=== PATIENT | male | born 1950 | race Caucasian/White ===

== ENCOUNTER 2019-09-30 07:12 | Emergency (ER) | payer MEDICARE, OTHER, SELFPAY ==
[2019-09-30 07:13] VITALS: BP 164/80; PULSE 94; RESP 18; TEMP 36.8; O2SAT 98; BMI 45.1
--- NOTE | 2019-09-30 07:41 | ED.DCSUM_ITS ---
History of Present Illness Chief Complaint: Nausea/Vomiting/Diarrhea Informant: Patient, Significant Other Onset: Days - 4 Narrative: The patient states that on he and his woke with vomiting. The next day he developed diarrhea. She has subsequently recovered well he has not. He continues to have watery diarrhea as well as emesis. Last emesis was last night around 213 0 hours. Last diarrhea was this morning. He notes difficulty maintaining p.o. medications. He has been taking his insulin. No recent antibiotics. No history of C. difficile. Past Medical History - Allergies and Home Meds Allergies/Adverse Reactions: Allergies No Known Allergies Allergy (Verified 09/30/19 07:15) Primary Care Physician: [place] [Primary Care Provider] - As Needed Surgical History: herniorrhaphy Smoking Status: Never smoker Physical Exam Vital Signs/Narrative: Vital Signs Temp Pulse Resp BP Pulse Ox 09/30/19 07:13 98.2 F 94 18 164/80 H 98 Diagnostic/Tx/Re-eval - Medical Decision Making Labs showed chronic kidney disease creatinine 1.68. States that he does see a kidney specialist for diabetic nephropathy. Electrolytes are in check. White count is stable. He received a liter of IV fluids. Urinalysis is normal. No vomiting here in the department after Zofran. I will write for Zofran and encourage Imodium as needed. Will encourage oral hydration. Return if worsening or concerns After the patient was discharged several hours later his stool specimen returned positive for the norovirus. He will be updated. ED Disposition - Plan for ED Patient: Disposition: Home or Assisted Living Diagnosis: Gastroenteritis, Norovirus Instructions: GASTROENTERITIS, Viral (4y-Adult) Prescriptions: Ondansetron [Zofran Odt] 4 mg PO Q6H PRN PRN #20 tab PRN Reason: Nausea Prescription Printed Referrals: [place] [Primary Care Provider] - As Needed
[2019-09-30] MEDS: Ondansetron 4 MG/2 ML Vial IV (08:09)
[2019-09-30] MEDS: 0.9% Normal Saline 1,000 ML 1000 ML IV (08:09)
[2019-09-30 08:17] LABS: Absolute Lymphocyte Count 1.41 X10^3/uL (0.83-4.51); Basophil# 0.03 X10^3/uL; Basophil% 0.3 % (0-1); Eosinophil# 0.05 X10^3/uL; Eosinophils% 0.5 % (0-5); Hematocrit 39.6 % (40-54); Hemoglobin 12.5 g/dL (13.0-16.5); Lymphocyte # 1.41 X10^3/ul (4.0); Lymphocyte % 13.4 % (19-41); Mean Corp Hgb Conc 31.6 g/dL (32-36); Mean Corpuscular Hgb 25.2 pg (27.0-32.0); Mean Corpuscular Volume 79.8 fL (80-94); Mean Platelet Vol. 8.4 fl (6.2-12.0); Monocyte# 1.03 X10^3/uL; Monocyte% 9.8 % (0-10); NRBC Flagged by Analyzer 0 % (0-5); Neutrophil % 75.7 % (47-70); Platelet Count 331 K/mm3 (150-450); RBC Distribution Width CV 14.7 % (11.6-14.6); RBC Distribution Width SD 42.7 fl (35.1-43.9); Red Blood Count 4.96 M/mm3 (4.6-6.2); White Blood Count 10.6 K/mm3 (4.4-11.0)
[2019-09-30 08:32] LABS: AST(SGOT) 18 U/L (15-37); Alanine Aminotransfer ALT/SGPT 31 U/L (16-61); Albumin, Serum 3.4 g/dL (3.2-5.0); Alkaline Phosphatase 78 U/L (45-117); Anion Gap 9 (5-15); BUN 38 mg/dL (7-18); BUN/Creat Ratio 22.6 RATIO (10-20); Bilirubin, Direct 0.33 mg/dL (0.00-0.30); Calcium,Total 9.1 mg/dL (8.5-10.1); Chloride 99 mmol/L (98-107); Creatinine, Serum 1.68 mg/dL (0.70-1.30); EST Glomerular Filtration Rate 43 mL/min (>60); Est Glom Filt Rate - Afr Amer 52 mL/min (>60); Estimated Creatinine Clearance 36.39 ml/min; Globulin 4.6 g/dL (2.2-4.2); Glucose 205 mg/dL (74-106); Lipase 118 U/L (73-393); Potassium 3.5 mmol/L (3.5-5.1); Sodium Level 134 mmol/L (136-145)
[2019-09-30 09:42] LABS: Mucous, Urine 0 SEEN /hpf (<or=2+); Red Blood Cells-Urine 0 SEEN /hpf (0-5); White Blood Cells 0 SEEN /hpf (0-5)
[2019-09-30 09:45] LABS: Color, Urine Yellow (Yellow); Glucose, Dipstick Normal (Normal); Ketone-Dipstick Negative (Negative); Leukocyte Esterase-Dipstick Negative /ul (Negative); Nitrite-Dipstick Negative (Negative); Occult Blood-Urine Negative /ul (Negative); Protein-Dipstick 15 mg/dl (Negative); Specific Gravity, Urine 1.015 (1.002-1.030); Urine Bilirubin Dipstick Negative (Negative); Urine Clarity Sl. Cloudy (Clear); Urine Urobilinogen Normal (Normal)
[2019-09-30 09:51] LABS: Bacteria RARE /hpf (None Seen); Hyaline Cast 0-5 SEEN /lpf (0-5); Squamous Epithelial Cells - UA 0-5 SEEN /hpf (0-5)
[2019-09-30 10:24] VITALS: BP 148/74; PULSE 87; RESP 18; O2SAT 99
--- NOTE | 2019-09-30 16:28 | ED.RN ---
Called pt and informed of norovirus and that it may last severqal days per dr Tillman. Pt is aware and has been pushing fluids. He verbalized need to return if he is unable to maintain fluids.
== END 2019-09-30 10:27 | disposition home or self-care (01) ==
PROVIDERS: Emergency Provider Emergency Medicine
DX: A08.11 Acute gastroenteropathy due to Norwalk agent (principal); E11.22 Type 2 diabetes mellitus with diabetic chronic kidney disease; N18.9 Chronic kidney disease, unspecified; E11.21 Type 2 diabetes mellitus with diabetic nephropathy; Z79.4 Long term (current) use of insulin; Z79.84 Long term (current) use of oral hypoglycemic drugs; Z79.899 Other long term (current) drug therapy; R19.7 Diarrhea, unspecified
CPT/HCPCS: 80048; 80076; 81001; 83690; 85025; 87506; 96361; 96374; 99283; J7030; J2405

== ENCOUNTER 2020-04-06 08:12 | Emergency (ER) | payer MEDICARE, OTHER, SELFPAY ==
[2020-04-06 08:13] VITALS: BP 175/107; PULSE 90; RESP 18; TEMP 36.6; O2SAT 98; BMI 45.6
--- NOTE | 2020-04-06 08:44 | ED.VISSUMM ---
- ER Visit Summary Date of Service: 04/06/20 Chief Complaint: Scrotal swelling, abdominal pain, and elevated blood sugar History of Present Illness: The patient is a 69 M who presents with scrotal swelling and lower abdominal pain that has been getting worse over the past couple days. Patient describes the pain as a pressure. Patient states it is over his scrotum and testicles. Patient states he has some pain into his lower abdomen. Patient states nothing makes it better or worse. Patient states his blood sugars have been increasing. Patient states he was started on Jardiance in November for his diabetes. Patient denies any fevers or chills. Patient denies any nausea or vomiting. Patient denies any dysuria or hematuria. Physical Examination: Vital signs are stable except for slightly elevated blood pressure of 175/107. Patient is afebrile. Patient is in no acute distress. Oral mucosa is pink and moist. Neck is supple. Trachea is midline. There is no JVD. Heart was regular rate and rhythm. Lungs are clear and equal bilaterally. Abdomen is soft. Bowel sounds are normal. There is some mild lower abdominal tenderness. There is no rebound or guarding noted. exam showed some mild tenderness over the posterior aspect of the left testicle, over the epididymis. There is no tenderness of the right testicle. The scrotum was nontender. There may be some mild edema of the scrotum. There are no abscesses or pustules noted. Examination of the penis was normal. Extremities are intact. There is no calf tenderness or edema. Cranial nerves II through XII are intact. There are no focal motor or sensory deficits. Test Results: CBC and comprehensive metabolic profile were obtained. BUN was slightly elevated at 21 and creatinine was 1.44. This was consistent with prior results. Glucose was slightly elevated at 230. Urinalysis does not show any evidence of urinary tract infection. CT scan of the abdomen and pelvis was obtained. There is a right renal cyst. There is constipation noted. There is a right adrenal mass suggestive of adenoma or myolipoma. This was interpreted by the radiologist and reviewed by myself. Emergency Department Course and Treatment: Patient was feeling better on reevaluation. Since the patient has tenderness over the epididymis of his left testicle, we will treat him for epididymitis. Patient was instructed to follow-up with his primary care physician in 3 to 5 days for further evaluation. Patient and family understood and were agreeable with the plan. All questions were answered. Disposition: Discharge home Impression: Left epididymitis This note was generated with [employer] dictation software. It may contain incorrect words, spelling, and punctuation that were not noted in review of the chart prior to signing ED Disposition - Plan for ED Patient: Disposition: Home or Assisted Living Diagnosis: Left epididymitis Instructions: ED Epididymitis Prescriptions: Ciprofloxacin [Cipro] 500 mg PO BID #14 tab Prescription Printed [facility]errals[facility] [[facility] Provider] - 3-5 Days
[2020-04-06 08:58] LABS: Mucous, Urine 0 SEEN /hpf (<or=2+); Red Blood Cells-Urine 0 SEEN /hpf (0-5); White Blood Cells 0 SEEN /hpf (0-5)
[2020-04-06 09:02] LABS: Absolute Neutrophil Count 6.5 X10^3/uL (2.0-7.7); Basophil# 0.07 X10^3/uL; Basophil% 0.7 % (0-1); Eosinophil# 0.14 X10^3/uL; Eosinophils% 1.4 % (0-5); Hematocrit 42.2 % (40-54); Hemoglobin 13.1 g/dL (13.0-16.5); Lymphocyte % 26.8 % (19-41); Mean Corpuscular Hgb 25.2 pg (27.0-32.0); Mean Corpuscular Volume 81.3 fL (80-94); Mean Platelet Vol. 8.1 fl (6.2-12.0); Monocyte% 5.9 % (0-10); NRBC Flagged by Analyzer 0 % (0-5); Neutrophil # 6.47 X10^3/uL (2.7-7.7); Neutrophil % 64.1 % (47-70); Platelet Count 344 K/mm3 (150-450); RBC Distribution Width CV 14.9 % (11.6-14.6); RBC Distribution Width SD 43.5 fl (35.1-43.9); Red Blood Count 5.19 M/mm3 (4.6-6.2); White Blood Count 10.1 K/mm3 (4.4-11.0)
[2020-04-06 09:03] LABS: Color, Urine Yellow (Yellow); Glucose, Dipstick 1000 mg/dl (Normal); Ketone-Dipstick Negative (Negative); Leukocyte Esterase-Dipstick Negative /ul (Negative); Nitrite-Dipstick Negative (Negative); Occult Blood-Urine Negative /ul (Negative); Protein-Dipstick Negative (Negative); Urine Bilirubin Dipstick Negative (Negative); Urine Clarity Clear (Clear); Urine Urobilinogen Normal (Normal); Urine pH 6.5 (5.0 - 8.0)
[2020-04-06 09:10] LABS: Bacteria 0 SEEN /hpf (None Seen); Squamous Epithelial Cells - UA 0-5 SEEN /hpf (0-5)
[2020-04-06 09:17] LABS: ALB/GLOB Ratio 0.7 RATIO (0.9-2.4); AST(SGOT) 14 U/L (15-37); Alanine Aminotransfer ALT/SGPT 26 U/L (16-61); Albumin, Serum 3.4 g/dL (3.2-5.0); Alkaline Phosphatase 82 U/L (45-117); Anion Gap 4 (5-15); BUN 21 mg/dL (7-18); BUN/Creat Ratio 14.6 RATIO (10-20); Calcium,Total 8.8 mg/dL (8.5-10.1); Chloride 104 mmol/L (98-107); Creatinine, Serum 1.44 mg/dL (0.70-1.30); EST Glomerular Filtration Rate 51 mL/min (>60); Est Glom Filt Rate - Afr Amer 62 mL/min (>60); Estimated Creatinine Clearance 42.46 ml/min; Globulin 4.6 g/dL (2.2-4.2); Glucose 230 mg/dL (74-106); Potassium 4.3 mmol/L (3.5-5.1); Sodium Level 136 mmol/L (136-145)
--- NOTE | 2020-04-06 09:45 | CT_ITS ---
STUDY: CT ABDOMEN AND PELVIS WITHOUT CONTRAST REASON FOR EXAM: Male, 69 years old. LOWER ABD PAIN, HERNIA REPAIR 20 + YRS AGO RADIATION DOSAGE (If Supplied By Facility): CTDIvol = ( 21.76 ) mGy, DLP = ( 1239.36 ) mGycm TECHNIQUE: Transaxial images were obtained from the dome of the diaphragm to the symphysis pubis without oral contrast, and without intravenous contrast. Sagittal and coronal images were reconstructed. Individualized dose optimization techniques were used for this CT. COMPARISON: None. FINDINGS: The visualized lung bases are unremarkable. The visualized portions of the heart are within normal limits. Normal liver. There are multiple small gallstones. Normal spleen. Normal pancreas. There is a well-circumscribed right adrenal mass measuring 2.7 x 3.4 cm with Hounsfield units in the range of fat or fluid. There is an exophytic cyst right kidney measuring 1.2 cm with benign features. There is an exophytic cyst measuring 2.9 cm right kidney with benign features. Normal left kidney. Normal visualized stomach. Normal small intestine. There is mild to moderate stool within a tortuous colon. There is minimal diverticulosis without diverticulitis. There is non-visualization of the appendix. Aorta is partially calcified. Normal inferior vena cava. Normal retroperitoneum. Normal urinary bladder. Normal visualized prostate gland. There is a ventral hernia mesh. There is a visualized reparative tearing umbilical hernia. There is an exaggerated physiologic lordosis. There is multilevel neural foraminal narrowing and moderate central stenosis. Cholelithiasis. This postoperative change in the lower right rectus muscle. CT/Abdomen/Pelvis without Cont IMPRESSION: Mild to moderate constipation. Status post ventral hernia repair. The appendix is not seen with certainty. No evidence of inflammation in the right lower quadrant Low attenuating well circumscribed 3.7 x 3.4 cm right adrenal mass with low Hounsfield units most suggestive of a adenoma or myolipoma. Benign-appearing right renal cyst. No evidence of hydronephrosis. Electronically Signed: Lindsey David MD at 11:00 EDT Tel , Service support ,
[2020-04-06 12:39] VITALS: BP 141/37; PULSE 87; RESP 18; O2SAT 96
== END 2020-04-06 12:40 | disposition home or self-care (01) ==
PROVIDERS: Emergency Provider Emergency Medicine
DX: N45.1 Epididymitis (principal); N28.1 Cyst of kidney, acquired; K59.00 Constipation, unspecified; E27.9 Disorder of adrenal gland, unspecified; E66.9 Obesity, unspecified; I10 Essential (primary) hypertension; K21.9 Gastro-esophageal reflux disease without esophagitis; E11.9 Type 2 diabetes mellitus without complications; Z79.4 Long term (current) use of insulin; Z79.84 Long term (current) use of oral hypoglycemic drugs; Z79.899 Other long term (current) drug therapy
CPT/HCPCS: 74176; 80053; 81001; 85025; 99283; A4216

== ENCOUNTER 2020-10-08 04:33 | Emergency (ER) | payer OTHER, MEDICARE, SELFPAY ==
[2020-10-08 04:34] VITALS: BP 186/84; PULSE 104; RESP 16; TEMP 36.9; O2SAT 98; BMI 48.9
--- NOTE | 2020-10-08 04:47 | ED.DCSUM_ITS ---
History of Present Illness Chief Complaint: Hypertension Informant: Patient Onset: Yesterday Context: Sudden Onset Timing: Continuous Quality: Elevated blood pressure readings Location: Home Current Severity: Moderate Maximum Severity: Moderate Worsened by: Nothing Relieved by: Nothing Associated Symptoms: Tremors Narrative: Patient elderly male with history of hypertension for many years who states he is compliant with his medication. He was noncompliant with diet over the holiday season. He also has history of type 2 diabetes requiring insulin, hypercholesterolemia, pernicious anemia, iron deficiency anemia. He denies headache. He denies double vision, blurred vision loss of vision. He states he has problems with hearing. The difficulty hearing is chronic. He denies ringing in his ears. He denies rhinorrhea, congestion or postnasal drainage. Denies sore throat. Denies dysphonia or dysphagia. He denies chest pain, dyspnea, dyspnea exertion, orthopnea or PND. He denies nausea or vomiting. He denies black or maroon stool. He denies urinary symptoms. He denies paresthesia, anesthesia motors upper or lower extremity. He denies problems with balance. Prior similar symptoms: Yes Recent Illness/Hospitalization: No - Past Medical History (1) History of hypercholesterolemia Status: Acute (2) History of pernicious anemia Status: Acute (3) History of iron deficiency anemia Status: Acute (4) Benign hypertension Status: Chronic (5) GERD (gastroesophageal reflux disease) Status: Chronic (6) Joint pain of leg Status: Chronic (7) Obesity Status: Chronic (8) Type II diabetes mellitus, uncontrolled Status: Chronic Past Medical History - Allergies and Home Meds Allergies/Adverse Reactions: Allergies No Known Allergies Allergy (Verified 10/08/20 04:43) Primary Care Physician: [place] [Primary Care Provider] - Surgical History: herniorrhaphy Lives: Spouse/ Significant Other Smoking Status: Never smoker Alcohol: None Drugs: None Review of Systems General: Denies: Chills, Fever, Malaise, Subjective, Weight loss Eyes: Denies: Visual changes - bilaterally, Blurred Vision - bilaterally, Diplopia ENT: Denies: Bilateral ear pain, Rhinorrhea, Sore throat Cardiovascular: Denies: Chest pain, Palpitations Respiratory: Denies: Dyspnea, Cough, Dyspnea on exertion, Orthopnea, Paroxysmal nocturnal dyspnea Gastrointestinal: Denies: Abdominal pain, Nausea, Vomiting, Diarrhea, Melena, Hematochezia Genitourinary: Denies: Dysuria, Hematuria, Frequency Musculoskeletal: Reports: Swelling - Swelling is not noted in the morning upon awakening.. Denies: Myalgias, Arthralgias, Neck pain, Back pain, Extremity Pain Skin: Denies: Rash, Wounds Neurological: Denies: Headache, Weakness Endocrine: Denies: Polyuria, Polydipsia Hematologic: Denies: Easy bruising, Easy bleeding Physical Exam Vital Signs/Narrative: Vital Signs Temp Pulse Resp BP Pulse Ox 10/08/20 04:34 98.4 F 104 H 16 186/84 H 98 Inital Vital Signs reviewed: Yes General: Well nourished, Well developed, Obese, No Acute Distress Head: Normocephalic, Atraumatic Eyes: Perrl, EOMI. Negative for: Pale conjunctiva, Scleral icterus ENT: Moist mucous membranes, No rhinorrhea Neck: Nontender Cardiovascular: Regular rhythm, No murmurs, Normal S1, Normal S2, Tachycardia Respiratory: No distress, CTA bilaterally, Chest nontender Abdomen: Soft, Nondistended, Normal bowel sounds, No masses. Negative for: Hepatomegaly, Splenomegaly, Mass, Pulsatile mass Rectal: Deferred Back: Nontender, Normal Inspection Extremities: Edema - 4 mm pitting edema. Negative for: Nontender Skin: Normal color, No rash, No Trauma. Negative for: Cyanosis, Diaphoresis, Jaundice Neurological: Alert, Oriented x3, Cranial nerves II-XII grossly intact, Normal Strength, Normal Sensation, Normal DTR - No clonus or Babinski sign., Normal Gait Psychological: Normal affect, Normal Mood Diagnostic/Tx/Re-eval Laboratory Results 10/08/20 10/08/20 04:47 05:35 Sodium 137 Potassium 4.0 Chloride 101 Carbon Dioxide 28.0 Anion Gap 8 BUN 24 H Creatinine 1.59 H Estim Creat Clear Calc 37.90 Est GFR (MDRD) Af Amer 55 L Est GFR (MDRD) Non-Af 46 L BUN/Creatinine Ratio 15.1 Glucose 163 H Calcium 9.2 Urine Color Yellow Urine Clarity Clear Urine pH 7.0 Ur Specific [place] 1.005 Urine Protein Negative Urine Glucose (UA) Normal Urine Ketones Negative Urine Occult Blood Negative Urine Nitrite Negative Urine Bilirubin Negative Urine Urobilinogen Normal Ur Leukocyte Esterase Negative With no proteinuria or hematuria and no significant rise in creatinine from prior and improving blood pressure without treatment will discharge to home to follow-up with physician at [facility]. Patient systolic normally is 1 30-1 40. - Medical Decision Making Patient with asymptomatic hypertension. In light of his age both medical problems will obtain basic metabolic panel and urinalysis. Will have nurse check blood pressure every 15 to 30 minutes. If there is evidence of endorgan injury will treat acutely otherwise will have him follow-up with his primary care physician. Patient creatinine elevated. Creatinine is unchanged from prior results. Blood pressure has diminished without treatment. Most recent blood pressure is 156/69. ED Disposition - Plan for ED Patient: Disposition: Home or Assisted Living Diagnosis: Accelerated essential hypertension, Chronic renal insufficiency, stage II (mild) Instructions: ED Hypertension, Established, ED Chronic Kidney Disease (CKD), ED Diet for Chronic Kidney Disease Referrals: [facility] [Primary Care Provider] - 1 Week
[2020-10-08 05:15] LABS: Anion Gap 8 (5-15); BUN 24 mg/dL (7-18); BUN/Creat Ratio 15.1 RATIO (10-20); Calcium,Total 9.2 mg/dL (8.5-10.1); Chloride 101 mmol/L (98-107); Creatinine, Serum 1.59 mg/dL (0.70-1.30); EST Glomerular Filtration Rate 46 mL/min (>60); Est Glom Filt Rate - Afr Amer 55 mL/min (>60); Glucose 163 mg/dL (74-106); Sodium Level 137 mmol/L (136-145)
[2020-10-08 05:16] VITALS: BP 156/69; PULSE 94
[2020-10-08 05:44] LABS: Bacteria 0 SEEN /hpf (None Seen); Color, Urine Yellow (Yellow); Glucose, Dipstick Normal (Normal); Ketone-Dipstick Negative (Negative); Leukocyte Esterase-Dipstick Negative /ul (Negative); Mucous, Urine 0 SEEN /hpf (<or=2+); Nitrite-Dipstick Negative (Negative); Occult Blood-Urine Negative /ul (Negative); Protein-Dipstick Negative (Negative); Red Blood Cells-Urine 0 SEEN /hpf (0-5); Specific Gravity, Urine 1.005 (1.002-1.030); Squamous Epithelial Cells - UA 0 SEEN /hpf (0-5); Urine Bilirubin Dipstick Negative (Negative); Urine Clarity Clear (Clear); Urine Urobilinogen Normal (Normal); White Blood Cells 0 SEEN /hpf (0-5)
[2020-10-08 06:06] VITALS: BP 148/51; PULSE 79; RESP 16; O2SAT 96
== END 2020-10-08 06:11 | disposition home or self-care (01) ==
PROVIDERS: Emergency Provider Emergency Medicine
DX: I12.9 Hypertensive chronic kidney disease with stage 1 through stage 4 chronic kidney disease, or unspecified chronic kidney disease (principal); E11.22 Type 2 diabetes mellitus with diabetic chronic kidney disease; N18.2 Chronic kidney disease, stage 2 (mild); E66.9 Obesity, unspecified; E78.00 Pure hypercholesterolemia, unspecified; D50.9 Iron deficiency anemia, unspecified; K21.9 Gastro-esophageal reflux disease without esophagitis; Z79.4 Long term (current) use of insulin; Z79.899 Other long term (current) drug therapy
CPT/HCPCS: 80048; 81001; 99284; A4216

== ENCOUNTER 2021-04-14 05:56 | Emergency (ER) | payer OTHER, MEDICARE, SELFPAY ==
[2021-04-14 05:57] VITALS: BP 158/110; PULSE 82; RESP 16; TEMP 36.2; O2SAT 93; BMI 46.7
[2021-04-14 06:09] VITALS: BP 141/52
--- NOTE | 2021-04-14 06:34 | EDS_ITS ---
HPI History of Present Illness Chief Complaint: Hypertension Informant: patient Narrative Narrative: 70-year-old male presents to the emergency room with hypertension. Patient currently takes atenolol as well as losartan-HCTZ for blood pressure management. He tells me that he got up around 0300 this morning and felt off. He felt a little shaky so he took his blood pressure and it showed systolics of around 170-180. Patient states that he has been under some stress lately with his [id number] in the hospital and terminally ill [id number]. He denies any change in diet. He denies any headache chest pain shortness of breath. He denies any new vision changes this morning. He does note that his hands felt tingly. He has been experiencing some resting tremor and notes the Parkinson's runs in his family. [facility] Medical History Diabetes Hypertension Hyperthyroidism Home Medications cholecalciferol (vitamin D3) [Vitamin D] 500 unit PO DAILY 11/06/16 [History Last Taken Unknown] insulin aspart U-100 [Novolog Flexpen (BKC)] 15 units SUBCUT BREAKFAST 11/06/16 [History Last Taken Unknown] insulin aspart U-100 [Novolog Flexpen U-100 Insulin] 16 units SUBCUT LUNCH 11/06/16 [History Last Taken Unknown] insulin glargine [Lantus] 80 unit SUBCUT QHS 11/06/16 [History Last Taken Unknown] metformin 500 mg PO BIDCM 11/06/16 [History Last Taken Unknown] omega-3 fatty acids-fish oil [Fish Oil 1,000 mg Capsule] 1 ea PO BID 11/06/16 [History Last Taken Unknown] Finasteride 5 mg PO DAILY 09/30/19 [History Last Taken Unknown] atorvastatin 80 mg PO QHS 09/30/19 [History Last Taken Unknown] cyanocobalamin (vitamin B-12) 500 mcg PO DAILY 09/30/19 [History Last Taken Unknown] ferrous sulfate 325 mg PO BIDCM 09/30/19 [History Last Taken Unknown] insulin aspart U-100 24 units SUBCUT DINNER 09/30/19 [History Last Taken Unknown] levothyroxine 25 mcg PO DAILY 09/30/19 [History Last Taken Unknown] losartan-hydrochlorothiazide 1 ea PO DAILY 09/30/19 [History Last Taken Unknown] magnesium oxide 420 mg PO DAILY 09/30/19 [History Last Taken Unknown] ascorbic acid (vitamin C) 250 mg PO BID 10/08/20 [History Last Taken Unknown] atenolol 25 mg PO DAILY 04/14/21 [History Last Taken Unknown] Allergy/AdvReac Type Severity Reaction Status Date / Time No Known Allergies Allergy Verified 04/14/21 06:01 Social History (Updated 04/14/21 @ 06:[address] King Tillman, DO) Smoking Status: Never smoker substance use type: does not use ROS ROS ED Constitutional Constitutional ED: Denies chills or weight loss Eyes Eyes: Denies change in vision or diplopia ENT ENT ED: Denies ear pain, rhinorrhea or sore throat Cardiovascular Cardiovascular: Denies chest pain, orthopnea, palpitations or racing heartbeat Respiratory/Chest Respiratory/Chest: Denies cough, dyspnea or orthopnea Gastrointestinal Gastrointestinal: Denies abdominal pain, diarrhea, nausea or vomiting Genitourinary Genitourinary ED: Denies dysuria, hematuria or urinary frequency Musculoskeletal Musculoskeletal: Denies arthralgias or myalgias Integumentary Denies abscess or rash Neurologic Neurologic: Reports tingling and tremor(s); Denies headache(s) or weakness Psychiatric Psychiatric: Denies anxiety, depression, suicidal ideation or suicidal thoughts Endocrine Endocrinology: Denies polydipsia, polyphagia or polyuria Allergic/Immunologic Allergic/Immunologic ED: Denies mouth swelling, tongue swelling or urticaria EXAM Physical Exam Const Vital Signs: 04/14/21 05:57 04/14/21 06:09 04/14/21 06:38 Temperature 97.2 F L Temperature Source Temporal Pulse Rate 82 Respiratory Rate 16 Blood Pressure 158/110 H 141/52 H 128/44 H Blood Pressure Mean 126 81 72 Pulse Ox 93 Oxygen Delivery Method Room Air Positive well nourished, well developed and obese General Appearance ED: well developed Nutritional Appearance: obese HEENT Reports normocephalic, head/scalp atraumatic and moist mucous membranes Eyes PERRL and EOMs intact bilaterally Neck no lymphadenopathy, supple and no JVD Resp normal respiratory effort and clear to auscultation bilaterally Cardio regular rate, regular rhythm and no murmurs GI normal to inspection, nondistended, normoactive bowel sounds and non-tender Palpation: soft Back/Spine no CVA tenderness and normal ROM Extremity normal to inspection General Extremety ED: Negative for edema General Extremity: Negative for edema Neuro oriented x3 and CN's II-XII intact bilaterally Sensorium / Orientation: alert Motor Exam: strength 5/5 throughout Psych mental status grossly normal Mood & Affect: Negative for depressed or tearful Skin no rashes or lesions noted and no wounds MDM MDM MDM Narrative Medical decision making narrative: Initial blood pressure in the ED 158/110. Few minutes later 141/52 and after my interview he was down to 138/56. Then 128/44. We will watch him for a couple more readings and if he stays down we will discharge him home. Patient is comfortable with this plan. Discharge Plan Triage Chief Complaint: Hypertension ED Provider: King Tillman Dx/Rx/DC Orders Clinical Impression: Accelerated essential hypertension Instructions: ED High Blood Pressure Hypertension Prescriptions: No Action Lantus U-100 Insulin 100 UNIT/ML solution 80 unit subcut QHS RF: 0 metformin 1,000 MG tablet 500 mg PO BIDCM RF: 0 insulin aspart U-100 [Novolog Flexpen U-100 Insulin] 100 UNITS/ML insulin pen 15 units subcut BREAKFAST RF: 0 insulin aspart U-100 [Novolog Flexpen U-100 Insulin] 100 UNITS/ML insulin pen 16 units subcut LUNCH RF: 0 cholecalciferol (vitamin D3) [Vitamin D3] 1,000 UNIT tablet 500 unit PO DAILY RF: 0 Fish Oil 1 EACH capsule 1 ea PO BID RF: 0 atorvastatin 40 MG tablet 80 mg PO QHS RF: 0 magnesium oxide 420 MG tablet 420 mg PO DAILY RF: 0 levothyroxine 25 MCG tablet 25 mcg PO DAILY RF: 0 cyanocobalamin (vitamin B-12) 500 MCG tablet 500 mcg PO DAILY RF: 0 ferrous sulfate 325 MG tablet 325 mg PO BIDCM RF: 0 insulin aspart U-100 100 UNITS/ML insulin pen 24 units subcut DINNER RF: 0 losartan-hydrochlorothiazide 1 EACH tablet 1 ea PO DAILY RF: 0 Finasteride 5 MG tablet 5 mg PO DAILY RF: 0 ascorbic acid (vitamin C) 250 MG tablet,chewable 250 mg PO BID RF: 0 atenolol 25 mg Tablet 25 mg PO DAILY RF: 0 [facility] [Primary [facility] Provider] - As Needed Disposition Disposition: Home, Self Care
[2021-04-14 06:38] VITALS: BP 128/44
== END 2021-04-14 07:10 | disposition home or self-care (01) ==
PROVIDERS: Emergency Provider Emergency Medicine
DX: I10 Essential (primary) hypertension (principal); E11.9 Type 2 diabetes mellitus without complications; E05.90 Thyrotoxicosis, unspecified without thyrotoxic crisis or storm; E66.9 Obesity, unspecified; Z68.42 Body mass index [BMI] 45.0-49.9, adult; Z79.4 Long term (current) use of insulin; Z79.899 Other long term (current) drug therapy
CPT/HCPCS: 99282; A4216

== ENCOUNTER 2021-07-20 04:29 | Emergency (ER) | payer OTHER, MEDICARE, SELFPAY ==
[2021-07-20 04:30] VITALS: BP 159/73; PULSE 81; RESP 16; TEMP 36; O2SAT 99; BMI 49.1
--- NOTE | 2021-07-20 04:43 | EDS_ITS ---
HPI History of Present Illness Chief Complaint: Wound Narrative Narrative: Patient states that he has a small wound on the left posterior arm from his freestyle balbina. It is currently out. Patient did not notice it was there until it drained. He states it was like a bubble and then popped. It is not draining anymore. He does not have any fever or chills. He has no systemic signs or symptoms. He feels otherwise well. [facility] Medical History Diabetes Hypertension Hyperthyroidism Home Medications cholecalciferol (vitamin D3) [Vitamin D] 500 unit PO DAILY 11/06/16 [History Last Taken Unknown] insulin aspart U-100 [Novolog Flexpen (BKC)] 15 units SUBCUT BREAKFAST 11/06/16 [History Last Taken Unknown] insulin aspart U-100 [Novolog Flexpen U-100 Insulin] 16 units SUBCUT LUNCH 11/06/16 [History Last Taken Unknown] insulin glargine [Lantus] 80 unit SUBCUT QHS 11/06/16 [History Last Taken Unk nown] metformin 500 mg PO BIDCM 11/06/16 [History Last Taken Unknown] omega-3 fatty acids-fish oil [Fish Oil 1,000 mg Capsule] 1 ea PO BID 11/06/16 [History Last Taken Unknown] Finasteride 5 mg PO DAILY 09/30/19 [History Last Taken Unknown] atorvastatin 80 mg PO QHS 09/30/19 [History Last Taken Unknown] cyanocobalamin (vitamin B-12) 500 mcg PO DAILY 09/30/19 [History Last Taken Unknown] ferrous sulfate 325 mg PO BIDCM 09/30/19 [History Last Taken Unknown] insulin aspart U-100 24 units SUBCUT DINNER 09/30/19 [History Last Taken Unknown] levothyroxine 25 mcg PO DAILY 09/30/19 [History Last Taken Unknown] losartan-hydrochlorothiazide 1 ea PO DAILY 09/30/19 [History Last Taken Unknown] magnesium oxide 420 mg PO DAILY 09/30/19 [History Last Taken Unknown] ascorbic acid (vitamin C) 250 mg PO BID 10/08/20 [History Last Taken Unknown] atenolol 25 mg PO DAILY 04/14/21 [History Last Taken Unknown] cephalexin 500 mg PO Q6H 5 Days #20 cap 07/20/21 [Rx Last Taken Unknown] Allergy/AdvReac Type Severity Reaction Status Date / Time No Known Allergies Allergy Verified 04/14/21 06:01 Social History Smoking Status: Never smoker substance use type: does not use ROS ROS ED Constitutional Constitutional ED: Denies fever(s) or subjective Eyes Eyes: Denies blurry vision or change in vision ENT ENT ED: Denies ear pain or sore throat Cardiovascular Cardiovascular: Denies chest pain, palpitations or racing heartbeat Respiratory/Chest Respiratory/Chest: Denies cough, dyspnea or sputum Gastrointestinal Gastrointestinal: Denies abdominal pain, constipation, diarrhea, nausea or vomiting Genitourinary Genitourinary ED: Denies dysuria, hematuria or urinary frequency Musculoskeletal Musculoskeletal: Denies arthralgias, myalgias or neck pain Integumentary Reports other Details: Wound on left posterior arm ; Denies abscess or Abrasions Neurologic Neurologic: Denies headache(s), paresthesias or weakness Psychiatric Psychiatric: Denies anxiety, depression, suicidal ideation or suicidal thoughts Endocrine Endocrinology: Denies polydipsia or polyuria EXAM Physical Exam Const Vital Signs: 07/20/21 04:30 Temperature 96.8 F L Temperature Source Temporal Pulse Rate 81 Respiratory Rate 16 Blood Pressure 159/73 H Blood Pressure Mean 101 Pulse Ox 99 Oxygen Delivery Method Room Air Positive well nourished and obese General Appearance ED: NAD Nutritional Appearance: obese HEENT Reports moist mucous membranes normocephalic and atraumatic Eyes PERRL and EOMs intact bilaterally Extremity full ROM General Extremety ED: Negative for edema General Extremity: Negative for edema Neuro oriented x3 Sensorium / Orientation: alert and oriented to person Psych mental status grossly normal Skin Skin Narrative: 2 cm circular area of erythema. There is no fluctuance. There is no current drainage. MDM MDM MDM Narrative Medical decision making narrative: Patient is a small wound to the left upper arm from his freestyle balbina. There does appear to be a mild infection here. There likely was a vesicle here that has burst. The skin has been pulled away. There is some underlying erythema still. I will start the patient on antibiotics. His wound was cleaned and dressed. Patient given instructions follow-up with his PCP or return for new or worsening symptoms. Impression: 1. Wound check?infected Discharge Plan Triage Chief Complaint: Wound ED Provider: Steve Lozano Dx/Rx/DC Orders Instructions: ED Wound Check (Infection) Prescriptions: New cephalexin 500 mg capsule 500 mg PO Q6H 5 Days Qty: 20 RF: 0 No Action Lantus U-100 Insulin 100 UNIT/ML solution 80 unit subcut QHS RF: 0 metformin 1,000 MG tablet 500 mg PO BIDCM RF: 0 insulin aspart U-100 [Novolog Flexpen U-100 Insulin] 100 UNITS/ML insulin pen 15 units subcut BREAKFAST RF: 0 insulin aspart U-100 [Novolog Flexpen U-100 Insulin] 100 UNITS/ML insulin pen 16 units subcut LUNCH RF: 0 cholecalciferol (vitamin D3) [Vitamin D3] 1,000 UNIT tablet 500 unit PO DAILY RF: 0 Fish Oil 1 EACH capsule 1 ea PO BID RF: 0 atorvastatin 40 MG tablet 80 mg PO QHS RF: 0 magnesium oxide 420 MG tablet 420 mg PO DAILY RF: 0 levothyroxine 25 MCG tablet 25 mcg PO DAILY RF: 0 cyanocobalamin (vitamin B-12) 500 MCG tablet 500 mcg PO DAILY RF: 0 ferrous sulfate 325 MG tablet 325 mg PO BIDCM RF: 0 insulin aspart U-100 100 UNITS/ML insulin pen 24 units subcut DINNER RF: 0 losartan-hydrochlorothiazide 1 EACH tablet 1 ea PO DAILY RF: 0 Finasteride 5 MG tablet 5 mg PO DAILY RF: 0 ascorbic acid (vitamin C) 250 MG tablet,chewable 250 mg PO BID RF: 0 atenolol 25 mg Tablet 25 mg PO DAILY RF: 0 [facility] [facility] [Primary Care Provider] - Disposition Disposition: Home, Self Care
[2021-07-20 05:04] VITALS: BP 159/73; PULSE 81; RESP 16; TEMP 36; O2SAT 99
[2021-07-20] MEDS: Cephalexin 250 MG Capsule 500 MG PO (05:04)
== END 2021-07-20 05:06 | disposition home or self-care (01) ==
LOC: ED 04:58
PROVIDERS: Emergency Provider Student in an Organized Health Care Education/Training Program
DX: S41.102A Unspecified open wound of left upper arm, initial encounter (principal); L08.9 Local infection of the skin and subcutaneous tissue, unspecified; X58.XXXA Exposure to other specified factors, initial encounter; Y93.9 Activity, unspecified; Y92.9 Unspecified place or not applicable; E66.9 Obesity, unspecified; Z68.42 Body mass index [BMI] 45.0-49.9, adult; I10 Essential (primary) hypertension; E11.9 Type 2 diabetes mellitus without complications; E05.90 Thyrotoxicosis, unspecified without thyrotoxic crisis or storm; Z79.4 Long term (current) use of insulin; Z79.899 Other long term (current) drug therapy
CPT/HCPCS: 99283

== ENCOUNTER 2021-08-26 05:17 | Emergency (ER) | payer OTHER, SELFPAY ==
[2021-08-26 05:18] VITALS: BP 165/60; PULSE 80; RESP 16; TEMP 36.9; O2SAT 98; BMI 47.0
--- NOTE | 2021-08-26 05:39 | RAD_ITS ---
STUDY: X-RAY CHEST REASON FOR EXAM: Male, 71 years old patient with cardiomegaly. TECHNIQUE: Single AP portable view of the chest. COMPARISON: 11/06/2016. FINDINGS: Cardiac monitoring leads are present. The lungs are hyperexpanded. There are prominent bronchovascular markings in both lungs. There is no demonstrated pleural abnormality. There is mild cardiac enlargement. Normal mediastinum and jan. There is prominence of the pulmonary hilar arteries with peripheral pulmonary vascular congestion. There is atherosclerotic tortuosity of the aortic arch and descending thoracic aorta. Normal visualized thoracic spine. Normal visualized ribs, clavicles, and shoulders. There is no demonstrated abnormality of the visualized soft tissue structures of the upper abdomen. RAD/Chest 1 View (Portable) IMPRESSION: Mild pulmonary vascular congestion. Electronically Signed: Ignacia Ellsworth MD at 7:13 EST , Service support ,
--- NOTE | 2021-08-26 05:39 | EKG12_ITS ---
Test Reason : HTN Blood Pressure : / mmHG Vent. Rate : 076 BPM Atrial Rate : 394 BPM P-R Int : 000 ms QRS Dur : 078 ms QT Int : 358 ms P-R-T Axes : 000 016 036 degrees QTc Int : 402 ms Normal sinus rhythm Nonspecific ST abnormality Abnormal ECG Confirmed by DESI FLORES, DOM ([id number]), video tape editor LENARD BACON ([id number]) on 08/28/2021 6:40:06 AM Referred By: DOUGLAS Confirmed By:DOM WEEKS MD
--- NOTE | 2021-08-26 05:52 | EX.ED.DYSGE1 ---
HPI History of Present Illness Chief Complaint: Hypertension Informant: patient and spouse/S.O. Narrative Narrative: Patient checked his blood pressure this morning about 230. He states he frequently gets up at night to urinate. He was not feeling badly. He checked his blood pressure and it was up. Therefore he tried to go back to sleep but was nervous when he got back up and checked and he is rechecked it several times since. It seems to be going up. His blood pressures ranged from a low of 151/66 with a heart rate of 64. The highest was 183/76 with a heart rate of 69. He does not have shortness of breath. He felt a little fullness or pressure kind of in his face above his eyes and around his jaw. But no chest pain. He was not diaphoretic. No nausea vomiting. He had no numbness tingling or weakness. No balance or gait disturbance. He did just have an increase of his blood pressure medicine on the . It sounds like he increased atenolol from 25-50 a day. He and his also feels that he gets very anxious when he checks his blood pressure and starts checking it frequently. [facility] Medical History Diabetes Hypertension Hyperthyroidism Home Medications cholecalciferol (vitamin D3) [Vitamin D] 500 unit PO DAILY 11/06/16 [History Last Taken Unknown] insulin aspart U-100 [Novolog Flexpen (BKC)] 19 units SUBCUT BREAKFAST 11/06/16 [History Last Taken Unknown] insulin aspart U-100 [Novolog Flexpen U-100 Insulin] 15 units SUBCUT LUNCH 11/06/16 [History Last Taken Unknown] insulin glargine [Lantus] 80 unit SUBCUT QHS 11/06/16 [History Last Taken Unknown] metformin 1,000 mg PO BIDCM 11/06/16 [History Last Taken Unknown] omega-3 fatty acids-fish oil [Fish Oil 1,000 mg Capsule] 1 ea PO BID 11/06/16 [History Last Taken Unknown] Finasteride 5 mg PO DAILY 09/30/19 [History Last Taken Unknown] atorvastatin 80 mg PO QHS 09/30/19 [History Last Taken Unknown] cyanocobalamin (vitamin B-12) 500 mcg PO DAILY 09/30/19 [History Last Taken Unknown] ferrous sulfate 325 mg PO BIDCM 09/30/19 [History Last Taken Unknown] insulin aspart U-100 24 units SUBCUT DINNER 09/30/19 [History Last Taken Unknown] levothyroxine 25 mcg PO DAILY 09/30/19 [History Last Taken Unknown] losartan-hydrochlorothiazide 1 ea PO DAILY 09/30/19 [History Last Taken Unknown] magnesium oxide 420 mg PO DAILY 09/30/19 [History Last Taken Unknown] ascorbic acid (vitamin C) 250 mg PO BID 10/08/20 [History Last Taken Unknown] atenolol 50 mg PO DAILY 04/14/21 [History Last Taken Unknown] cephalexin 500 mg PO Q6H 5 Days #20 cap 07/20/21 [Rx Last Taken Unknown] Allergy/AdvReac Type Severity Reaction Status Date / Time No Known Allergies Allergy Verified 04/14/21 06:01 Social History Smoking Status: Never smoker substance use type: does not use ROS ROS ED Constitutional Constitutional ED: Denies chills or fever(s) Eyes Eyes: Denies blurry vision, change in vision or diplopia ENT ENT ED: Denies rhinorrhea or sore throat Cardiovascular Cardiovascular: Denies chest pain or palpitations Respiratory/Chest Respiratory/Chest: Denies cough or dyspnea Gastrointestinal Gastrointestinal: Denies nausea or vomiting Musculoskeletal Musculoskeletal: Denies back pain or neck pain Integumentary Denies rash Neurologic Neurologic: Reports other Details: Full feeling in his face but no actual headache. ; Denies headache(s), paresthesias or weakness Psychiatric Psychiatric: Reports anxiety Endocrine Endocrinology: Denies polydipsia or polyuria Allergic/Immunologic Allergic/Immunologic ED: Denies urticaria EXAM Physical Exam Const Vital Signs: 08/26/21 05:18 08/26/21 07:18 Temperature 98.4 F Temperature Source Oral Pulse Rate 80 63 Respiratory Rate 16 18 Blood Pressure 165/60 H 143/57 H Blood Pressure Mean 95 85 Pulse Ox 98 99 Oxygen Delivery Method Room Air Room Air Positive well nourished, well developed and obese General Appearance ED: well developed and NAD Nutritional Appearance: obese HEENT Reports moist mucous membranes Negative for trauma or tenderness Eyes General Eye ED: Negative for pale conjunctiva or scleral icterus Neck no JVD Chest Wall inspection of chest normal Resp normal respiratory effort and clear to auscultation bilaterally Effort and Inspection: Negative for pain with movement Auscultation: Negative for rales, rhonchi or wheezes Cardio regular rate, regular rhythm and no murmurs GI normal to inspection, nondistended, normoactive bowel sounds and non-tender Palpation: soft Back/Spine no CVA tenderness Extremity normal to inspection General Extremety ED: Negative for edema or tenderness General Extremity: Negative for edema Neuro oriented x3 and no sensory deficits noted Sensorium / Orientation: alert Motor Exam: strength 5/5 throughout Psych mental status grossly normal Skin no rashes or lesions noted MDM MDM MDM Narrative Medical decision making narrative: Patient's blood pressure is down to 143/65 without therapy. CBC shows minimal anemia with normal white count and normal platelets. Electrolytes are relatively normal except mild elevation of his creatinine at 1.45. Glucose is a bit up at 214. Chest x-ray shows mild congestion but some of this may be body habitus. It looks similar to prior when I reviewed. Patient feels well. I think he is okay to go home. Troponin is also negative. We checked this because he had some flushing or feelings in his face. There is no indication of atypical angina. We talked about taking his blood pressure twice a day and recording it and then taking those results into his physician. His even encouraged him to take it 2 or 3 times a day not 2 or 3 times an hour. Certainly if he develops further symptoms, shortness of breath pain or continually rising blood pressures he should return. Lab Data Attestation: I reviewed the patient's lab results. Labs: Laboratory Results - last 24 hr 08/26/21 08/26/21 05:55 05:55 WBC 10.3 RBC 4.60 Hgb 12.0 L Hct 39.1 L MCV 85.0 MCH 26.1 L MCHC 30.7 L RDW Std Deviation 42.5 RDW Coeff of Giulia 13.9 Plt Count 290 MPV 8.9 Immature Gran % (Auto) 0.700 Neut % (Auto) 63.6 Lymph % (Auto) 26.9 Laurel % (Auto) 6.4 Eos % (Auto) 1.6 Baso % (Auto) 0.8 Absolute Neuts (auto) 6.6 Absolute Lymphs (auto) 2.77 Nucleated RBC % 0 Sodium 138 Potassium 4.4 Chloride 103 Carbon Dioxide 29.0 Anion Gap 6 BUN 24 H Creatinine 1.45 H Estim Creat Clear Calc 42.42 Est GFR (MDRD) Af Amer 61 Est GFR (MDRD) Non-Af 51 L BUN/Creatinine Ratio 16.6 Glucose 214 H Calcium 9.2 Troponin I High Sens 8 Radiography Diagnostic Testing: Clinical Impression(s) from Imaging Studies Chest X-Ray 08/26/21 05:39 IMPRESSION: Mild pulmonary vascular congestion. Electronically Signed: Ignacia Ellsworth MD at 7:13 EST , Service support , EKG Initial EKG: Comments: EKG done as part of work-up for hypertension read by me shows very irregular baseline. EKG read as junctional but I believe I do see P waves with the [place] interval approximately 180 ms. No ventricular ectopy. No acute ST elevation or depression. QRS duration and QTc normal. Discharge Plan Triage Chief Complaint: Hypertension ED Provider: Yoandy Mendez Dx/Rx/DC Orders Clinical Impression: Hypertension Instructions: ED Hypertension, Established Prescriptions: No Action Lantus U-100 Insulin 100 UNIT/ML solution 80 unit subcut QHS RF: 0 metformin 1,000 MG tablet 1,000 mg PO BIDCM RF: 0 insulin aspart U-100 [Novolog Flexpen U-100 Insulin] 100 UNITS/ML insulin pen 19 units subcut BREAKFAST RF: 0 insulin aspart U-100 [Novolog Flexpen U-100 Insulin] 100 UNITS/ML insulin pen 15 units subcut LUNCH RF: 0 cholecalciferol (vitamin D3) [Vitamin D3] 1,000 UNIT tablet 500 unit PO DAILY RF: 0 Fish Oil 1 EACH capsule 1 ea PO BID RF: 0 atorvastatin 40 MG tablet 80 mg PO QHS RF: 0 magnesium oxide 420 MG tablet 420 mg PO DAILY RF: 0 levothyroxine 25 MCG tablet 25 mcg PO DAILY RF: 0 cyanocobalamin (vitamin B-12) 500 MCG tablet 500 mcg PO DAILY RF: 0 ferrous sulfate 325 MG tablet 325 mg PO BIDCM RF: 0 insulin aspart U-100 100 UNITS/ML insulin pen 24 units subcut DINNER RF: 0 losartan-hydrochlorothiazide 1 EACH tablet 1 ea PO DAILY RF: 0 Finasteride 5 MG tablet 5 mg PO DAILY RF: 0 ascorbic acid (vitamin C) 250 MG tablet,chewable 250 mg PO BID RF: 0 atenolol 25 mg Tablet 50 mg PO DAILY RF: 0 cephalexin 500 mg capsule 500 mg PO Q6H 5 Days Qty: 20 RF: 0 [facility] [facility] [facility] [Primary Care Provider] - 1-2 Weeks Disposition Disposition: Home, Self Care
[2021-08-26 06:16] LABS: Absolute Lymphocyte Count 2.77 X10^3/uL (0.83-4.51); Absolute Neutrophil Count 6.6 X10^3/uL (2.0-7.7); Basophil# 0.08 X10^3/uL; Basophil% 0.8 % (0-1); Eosinophil# 0.17 X10^3/uL; Eosinophils% 1.6 % (0-5); Hematocrit 39.1 % (40-54); Lymphocyte # 2.77 X10^3/ul (0.83-4.51); Lymphocyte % 26.9 % (19-41); Mean Corp Hgb Conc 30.7 g/dL (32-36); Mean Corpuscular Hgb 26.1 pg (27.0-32.0); Mean Platelet Vol. 8.9 fl (6.2-12.0); Monocyte# 0.66 X10^3/uL; Monocyte% 6.4 % (0-10); NRBC Flagged by Analyzer 0 % (0-5); Neutrophil # 6.56 X10^3/uL (2.7-7.7); Neutrophil % 63.6 % (47-70); Platelet Count 290 K/mm3 (150-450); RBC Distribution Width CV 13.9 % (11.6-14.6); RBC Distribution Width SD 42.5 fl (35.1-43.9); White Blood Count 10.3 K/mm3 (4.4-11.0)
[2021-08-26 06:30] LABS: Anion Gap 6 (5-15); BUN 24 mg/dL (7-18); BUN/Creat Ratio 16.6 RATIO (10-20); Calcium,Total 9.2 mg/dL (8.5-10.1); Chloride 103 mmol/L (98-107); Creatinine, Serum 1.45 mg/dL (0.70-1.30); EST Glomerular Filtration Rate 51 mL/min (>60); Est Glom Filt Rate - Afr Amer 61 mL/min (>60); Estimated Creatinine Clearance 42.42 ml/min; Glucose 214 mg/dL (74-106); Potassium 4.4 mmol/L (3.5-5.1); Sodium Level 138 mmol/L (136-145); Troponin-I HS 8 pg/mL (3.0-78.0)
[2021-08-26 07:18] VITALS: BP 143/57; PULSE 63; RESP 18; O2SAT 99
== END 2021-08-26 07:32 | disposition home or self-care (01) ==
PROVIDERS: Emergency Provider Emergency Medicine
DX: I10 Essential (primary) hypertension (principal); D64.9 Anemia, unspecified; E66.9 Obesity, unspecified; Z68.42 Body mass index [BMI] 45.0-49.9, adult; E05.90 Thyrotoxicosis, unspecified without thyrotoxic crisis or storm; E11.9 Type 2 diabetes mellitus without complications; Z79.4 Long term (current) use of insulin; Z79.899 Other long term (current) drug therapy
CPT/HCPCS: 71045; 80048; 84484; 85025; 93005; 99284; A4216

== ENCOUNTER 2021-10-03 11:10 | Emergency (ER) | payer OTHER, SELFPAY ==
[2021-10-03 11:13] VITALS: BP 173/61; PULSE 67; RESP 16; TEMP 36.1; O2SAT 97; BMI 47.0
--- NOTE | 2021-10-03 11:28 | EKG12_ITS ---
Test Reason : CP Blood Pressure : / mmHG Vent. Rate : 066 BPM Atrial Rate : 066 BPM P-R Int : 198 ms QRS Dur : 088 ms QT Int : 390 ms P-R-T Axes : 060 024 028 degrees QTc Int : 408 ms Normal sinus rhythm Normal ECG Confirmed by SYED FLORES, ABDIAZIZ ([id number]), copy editor ALVERTO HERNANDEZ ([id number]) on 10/07/2021 10:01:22 AM Referred By: PL Confirmed By:ABDIAZIZ LYNCH MD
--- NOTE | 2021-10-03 11:28 | RAD_ITS ---
STUDY: X-RAY CHEST REASON FOR EXAM: Male, 71 years old. Chest pain TECHNIQUE: Single AP portable view of the chest. COMPARISON: 08/26/2021. FINDINGS: No focal infiltrate is seen. There is no demonstrated pleural abnormality. The cardiac silhouette is within normal limits. Normal mediastinum and jan. Normal visualized pulmonary arteries. Normal visualized aortic arch and descending thoracic aorta. Stable osseous structures. There is no demonstrated abnormality of the visualized soft tissue structures of the upper abdomen. RAD/Chest 1 View (Portable) IMPRESSION: No active pulmonary disease. Electronically Signed: Chi Umaña, at 12:15 EST Tel , Service support ,
[2021-10-03 11:29] VITALS: BP 161/58; PULSE 68; RESP 16; TEMP 36.9; O2SAT 97
--- NOTE | 2021-10-03 11:31 | ED.VIS.CHEST ---
HPI History of Present Illness Chief Complaint: Chest Pain Informant: patient Narrative Narrative: Patient presents with epigastric and chest pain complaints. He states most of it is in the epigastric. It will go up and down the middle of his chest to the back of his throat. Sometimes his throat feels a little bit sore. This has been going on for about 4 days. It waxes and wanes. It never seems to go completely away. He states exertion and getting up walking around makes it better. He is not short of breath. He has no diaphoresis. He states it tends to bother him more about 2 or 3 in the morning. He commonly gets up at that time to go to the bathroom and he notices it more than. He states sometimes when he eats he feels a little choking or gagging. He is not sure if eating worsens better makes the symptoms better though. Symptoms usually last for hours at a time. He used to be on meds for reflux but has not been on them for a while. He is not exactly sure when he quit them. He denies any history of heart disease although he has risk factors for this. He has no family history of heart disease he is a non-smoker. He has had no travel surgery immobilization or history of DVT or PE. He has no leg pain or swelling that is new or different. He does get some chronic edema for which he wears compression hose. He states sometimes his stomach feels sour but he is not sure if that is actually nausea or not. He is still eating and drinking well. [facility] Medical History Diabetes Hypertension Hyperthyroidism Home Medications cholecalciferol (vitamin D3) [Vitamin D] 500 unit PO DAILY 11/06/16 [History Last Taken Unknown] insulin aspart U-100 [Novolog Flexpen (BKC)] 19 units SUBCUT BREAKFAST 11/06/16 [History Last Taken Unknown] insulin aspart U-100 [Novolog Flexpen U-100 Insulin] 15 units SUBCUT LUNCH 11/06/16 [History Last Taken Unknown] insulin glargine [Lantus] 80 unit SUBCUT QHS 11/06/16 [History Last Taken Unknown] metformin 1,000 mg PO BIDCM 11/06/16 [History Last Taken Unknown] omega-3 fatty acids-fish oil [Fish Oil 1,000 mg Capsule] 1 ea PO BID 11/06/16 [History Last Taken Unknown] Finasteride 5 mg PO DAILY 09/30/19 [History Last Taken Unknown] atorvastatin 80 mg PO QHS 09/30/19 [History Last Taken Unknown] cyanocobalamin (vitamin B-12) 500 mcg PO DAILY 09/30/19 [History Last Taken Unknown] ferrous sulfate 325 mg PO BIDCM 09/30/19 [History Last Taken Unknown] insulin aspart U-100 24 units SUBCUT DINNER 09/30/19 [History Last Taken Unknown] levothyroxine 25 mcg PO DAILY 09/30/19 [History Last Taken Unknown] losartan-hydrochlorothiazide 1 ea PO DAILY 09/30/19 [History Last Taken Unknown] magnesium oxide 420 mg PO DAILY 09/30/19 [History Last Taken Unknown] ascorbic acid (vitamin C) 250 mg PO BID 10/08/20 [History Last Taken Unknown] atenolol 50 mg PO DAILY 04/14/21 [History Last Taken Unknown] cephalexin 500 mg PO Q6H 5 Days #20 cap 07/20/21 [Rx Last Taken Unknown] esomeprazole magnesium [Nexium] 20 mg PO DAILY #30 cap 10/03/21 [Rx Last Taken Unknown] Allergy/AdvReac Type Severity Reaction Status Date / Time No Known Allergies Allergy Verified 10/03/21 11:17 Social History Smoking Status: Never smoker substance use type: does not use ROS ROS ED Constitutional Constitutional ED: Denies chills, fever(s) or sweats Eyes Eyes: Denies blurry vision or change in vision ENT ENT ED: Reports sore throat; Denies rhinorrhea Cardiovascular Cardiovascular: Reports as per HPI and chest pain; Denies palpitations or racing heartbeat Respiratory/Chest Respiratory/Chest: Denies cough, dyspnea or sputum Gastrointestinal Gastrointestinal: Reports nausea; Denies abdominal pain, diarrhea or vomiting Genitourinary Genitourinary ED: Denies dysuria or hematuria Musculoskeletal Musculoskeletal: Denies arthralgias or myalgias Integumentary Denies rash Neurologic Neurologic: Denies headache(s), paresthesias or weakness Endocrine Endocrinology: Denies polydipsia or polyuria Hematologic/Lymphatic Hematologic/Lymphatic: Denies easy bleeding or easy bruising Allergic/Immunologic Allergic/Immunologic ED: Denies mouth swelling or urticaria EXAM Physical Exam Const Vital Signs: 10/03/21 11:13 10/03/21 11:24 10/03/21 11:29 Temperature 97.0 F L 98.4 F Temperature Source Temporal Temporal Pulse Rate 67 68 Respiratory Rate 16 16 Respiratory Effort Normal Blood Pressure 173/61 H 161/58 H Blood Pressure Mean 98 92 Pulse Ox 97 97 Oxygen Delivery Method Room Air Room Air 10/03/21 11:32 Temperature Temperature Source Pulse Rate Respiratory Rate Respiratory Effort Blood Pressure Blood Pressure Mean Pulse Ox 97 Oxygen Delivery Method Room Air Positive well nourished, well developed and obese General Appearance ED: well developed and NAD; Negative for pallor Nutritional Appearance: obese HEENT normocephalic and atraumatic Eyes General Eye ED: Negative for pale conjunctiva or scleral icterus Neck no JVD Chest Wall inspection of chest normal and palpation of chest normal Resp normal respiratory effort and clear to auscultation bilaterally Effort and Inspection: respiratory distress; Negative for pain with movement Auscultation: Negative for rales, rhonchi or wheezes Cardio regular rate, regular rhythm and no murmurs GI normal to inspection, nondistended, normoactive bowel sounds, soft to palpation and non-tender GI Narrative: Patient has no abdominal tenderness. But he states that he just feels it when I press in the epigastrium. There is no rebound or guarding. No notable hernia. Back/Spine no CVA tenderness Extremity normal to inspection Extremity Narrative: Patient has no edema, but he does have compression hose on which he wears chronically. General Extremety ED: Negative for edema or tenderness General Extremity: Negative for edema Neuro Sensorium / Orientation: awake and alert Psych mental status grossly normal Skin no rashes or lesions noted Skin Narrative: No diaphoresis. General Skin Exam: Negative for pallor MDM MDM MDM Narrative Medical decision making narrative: Patient's work-up shows normal white count. Minimal anemia. Electrolytes are overall unremarkable. He has baseline renal dysfunction. Troponin is 6 despite days of symptoms. Chest x-ray is negative. EKG shows no acute process and no change. Patient did have relief of symptoms with GI cocktail. This patient symptoms do not sound like heart disease. He has pain from his epigastrium up. Is worse in the morning. Is relieved by GI cocktail. I think with continual pain for 3 to 4 days we can get him home. I do not think this requires a delta troponin. We will get him started on Nexium. Lab Data Attestation: I reviewed the patient's lab results. Labs: Laboratory Results - last 24 hr 10/03/21 10/03/21 11:40 11:40 WBC 10.6 RBC 4.56 L Hgb 11.9 L Hct 38.2 L MCV 83.8 MCH 26.1 L MCHC 31.2 L RDW Std Deviation 42.5 RDW Coeff of Giulia 13.9 Plt Count 284 MPV 8.7 Immature Gran % (Auto) 0.500 Neut % (Auto) 67.7 Lymph % (Auto) 22.6 Crosby % (Auto) 7.4 Eos % (Auto) 1.1 Baso % (Auto) 0.7 Absolute Neuts (auto) 7.2 Absolute Lymphs (auto) 2.40 Nucleated RBC % 0 Sodium 138 Potassium 4.1 Chloride 104 Carbon Dioxide 27.0 Anion Gap 7 BUN 26 H Creatinine 1.46 H Estim Creat Clear Calc 42.13 Est GFR (MDRD) Af Amer 61 Est GFR (MDRD) Non-Af 50 L BUN/Creatinine Ratio 17.8 Glucose 152 H Calcium 9.6 Troponin I High Sens 6 Radiography Diagnostic Testing: Clinical Impression(s) from Imaging Studies Chest X-Ray 10/03/21 11:28 IMPRESSION: No active pulmonary disease. Electronically Signed: Chi Leeroy, at 12:15 EST Tel , Service support , EKG Initial EKG: Comments: EKG done for epigastric chest pain read by me shows a normal sinus rhythm. Overall rate of 66. No ectopy. Mild nonspecific ST and T wave changes but no sign of acute ST elevation or depression. EKG is done with mild symptoms. WA interval, QRS duration and QTc is normal. EKG is very similar to prior from 26 August 2021 Discharge Plan Triage Chief Complaint: Chest Pain ED Provider: Yoandy Mendez Dx/Rx/DC Orders Clinical Impression: GERD (gastroesophageal reflux disease), Chest pain Instructions: ED Chest Pain, Uncertain Cause, ED GERD (Adult) Prescriptions: New esomeprazole magnesium [Nexium] 20 mg capsule,delayed release(DR/EC) 20 mg PO DAILY Qty: 30 RF: 0 No Action Lantus U-100 Insulin 100 UNIT/ML solution 80 unit subcut QHS RF: 0 metformin 1,000 MG tablet 1,000 mg PO BIDCM RF: 0 insulin aspart U-100 [Novolog Flexpen U-100 Insulin] 100 UNITS/ML insulin pen 19 units subcut BREAKFAST RF: 0 insulin aspart U-100 [Novolog Flexpen U-100 Insulin] 100 UNITS/ML insulin pen 15 units subcut LUNCH RF: 0 cholecalciferol (vitamin D3) [Vitamin D3] 1,000 UNIT tablet 500 unit PO DAILY RF: 0 Fish Oil 1 EACH capsule 1 ea PO BID RF: 0 atorvastatin 40 MG tablet 80 mg PO QHS RF: 0 magnesium oxide 420 MG tablet 420 mg PO DAILY RF: 0 levothyroxine 25 MCG tablet 25 mcg PO DAILY RF: 0 cyanocobalamin (vitamin B-12) 500 MCG tablet 500 mcg PO DAILY RF: 0 ferrous sulfate 325 MG tablet 325 mg PO BIDCM RF: 0 insulin aspart U-100 100 UNITS/ML insulin pen 24 units subcut DINNER RF: 0 losartan-hydrochlorothiazide 1 EACH tablet 1 ea PO DAILY RF: 0 Finasteride 5 MG tablet 5 mg PO DAILY RF: 0 ascorbic acid (vitamin C) 250 MG tablet,chewable 250 mg PO BID RF: 0 atenolol 25 mg Tablet 50 mg PO DAILY RF: 0 cephalexin 500 mg capsule 500 mg PO Q6H 5 Days Qty: 20 RF: 0 [facility] [Primary Care Provider] - 3-5 Days Disposition Disposition: Home, Self Care
[2021-10-03 11:32] VITALS: O2SAT 97
[2021-10-03 11:45] LABS: Absolute Neutrophil Count 7.2 X10^3/uL (2.0-7.7); Basophil# 0.07 X10^3/uL; Basophil% 0.7 % (0-1); Eosinophil# 0.12 X10^3/uL; Eosinophils% 1.1 % (0-5); Hematocrit 38.2 % (40-54); Hemoglobin 11.9 g/dL (13.0-16.5); Lymphocyte % 22.6 % (19-41); Mean Corp Hgb Conc 31.2 g/dL (32-36); Mean Corpuscular Hgb 26.1 pg (27.0-32.0); Mean Corpuscular Volume 83.8 fL (80-94); Mean Platelet Vol. 8.7 fl (6.2-12.0); Monocyte# 0.78 X10^3/uL; Monocyte% 7.4 % (0-10); NRBC Flagged by Analyzer 0 % (0-5); Neutrophil # 7.18 X10^3/uL (2.7-7.7); Neutrophil % 67.7 % (47-70); Platelet Count 284 K/mm3 (150-450); RBC Distribution Width CV 13.9 % (11.6-14.6); RBC Distribution Width SD 42.5 fl (35.1-43.9); Red Blood Count 4.56 M/mm3 (4.6-6.2); White Blood Count 10.6 K/mm3 (4.4-11.0)
[2021-10-03] MEDS: Aspirin 81 MG TAB.CHEW 324 MG PO (11:49)
[2021-10-03] MEDS: Mag Hydrox/Al Hydrox/Simeth 30 ML UDC PO (11:50)
[2021-10-03 12:09] LABS: Anion Gap 7 (5-15); BUN 26 mg/dL (7-18); BUN/Creat Ratio 17.8 RATIO (10-20); Calcium,Total 9.6 mg/dL (8.5-10.1); Chloride 104 mmol/L (98-107); Creatinine, Serum 1.46 mg/dL (0.70-1.30); EST Glomerular Filtration Rate 50 mL/min (>60); Est Glom Filt Rate - Afr Amer 61 mL/min (>60); Estimated Creatinine Clearance 42.13 ml/min; Glucose 152 mg/dL (74-106); Potassium 4.1 mmol/L (3.5-5.1); Sodium Level 138 mmol/L (136-145); Troponin-I HS 6 pg/mL (3.0-78.0)
[2021-10-03 12:34] VITALS: BP 131/62; PULSE 58; RESP 18; TEMP 37.1; O2SAT 97
[2021-10-03] MEDS: Pantoprazole Sodium 20 MG Tablet PO (12:38)
== END 2021-10-03 12:43 | disposition home or self-care (01) ==
PROVIDERS: Emergency Provider Emergency Medicine
DX: K21.9 Gastro-esophageal reflux disease without esophagitis (principal); E11.9 Type 2 diabetes mellitus without complications; I10 Essential (primary) hypertension; E05.90 Thyrotoxicosis, unspecified without thyrotoxic crisis or storm; Z79.4 Long term (current) use of insulin; Z79.899 Other long term (current) drug therapy
CPT/HCPCS: 71045; 80048; 84484; 85025; 93005; 99285; A4216

== ENCOUNTER 2023-09-26 23:51 | Emergency (ER) | payer OTHER, SELFPAY ==
[2023-09-26 23:53] VITALS: BP 198/72; PULSE 74; RESP 16; TEMP 36.3; O2SAT 97; BMI 44.8
--- NOTE | 2023-09-27 00:07 | RAD_ITS ---
STUDY: X-RAY - ABDOMEN/PELVIS REASON FOR EXAM: Male, 73 years old patient with constipation. TECHNIQUE: Three AP supine views of the abdomen and pelvis. COMPARISON: CT the abdomen and pelvis dated April 06, 2020. FINDINGS: Normal visualized lung bases. There is an unremarkable bowel gas pattern. Surgical sutures are visible in the right lower quadrant. There is no obvious organomegaly, mass, dilated bowel or pathologic calcifications. Normal soft tissue structures. There are diffuse degenerative changes of the visualized spine. There are degenerative changes of both hips. RAD/Abdomen Single View IMPRESSION: No radiographic evidence of acute intra-abdominal disease. Electronically Signed: Ignacia Ellsworth MD at 1:17 EST ,
--- NOTE | 2023-09-27 00:08 | EDS_ITS ---
HPI History of Present Illness Chief Complaint: Constipation Informant: patient Narrative Narrative: 73-year-old male presenting to the emergency room chief complaint of constipation. Patient states that last week he was feeling constipated took some MiraLAX which helped. Over the past 3 days he has been unable to have a significant bowel movement. He states that today he is going to the bathroom multiple times but is only been able to pass a small hard stool. He is able to pass some flatus. He denies any urinary difficulty. No sharp rectal pain. No rectal bleeding. He is a diabetic. He notes no changes in recent medications. He notes a lower abdominal pain described as cramping that is intermittent PFSH [facility] Medical History Diabetes Hypertension Hyperthyroidism Home Medications cholecalciferol (vitamin D3) 25 mcg (1,000 unit) tablet (Vitamin D3) 500 unit PO DAILY 11/06/16 [History Last Taken Unknown] insulin aspart U-100 100 unit/mL (3 mL) subcutaneous pen (Novolog FlexPen U-100 Insulin aspart) 15 units subcut LUNCH 11/06/16 [History Last Taken Unknown] insulin aspart U-100 100 unit/mL (3 mL) subcutaneous pen (Novolog FlexPen U-100 Insulin aspart) 19 units subcut BREAKFAST 11/06/16 [History Last Taken Unknown] insulin glargine 100 unit/mL subcutaneous solution (Lantus U-100 Insulin) 80 unit subcut QHS 11/06/16 [History Last Taken Unknown] metformin 1,000 mg tablet 1,000 mg PO BIDCM 11/06/16 [History Last Taken Unknown] omega-3 fatty acids-fish oil 340 mg-1,000 mg capsule (Fish Oil) 1 ea PO BID 11/06/16 [History Last Taken Unknown] Finasteride 5 mg PO DAILY 09/30/19 [History Last Taken Unknown] atorvastatin 40 mg tablet 80 mg PO QHS 09/30/19 [History Last Taken Unknown] cyanocobalamin (vitamin B-12) 500 mcg tablet 500 mcg PO DAILY 09/30/19 [History Last Taken Unknown] ferrous sulfate 325 mg (65 mg iron) tablet 325 mg PO BIDCM 09/30/19 [History Last Taken Unknown] insulin aspart U-100 100 unit/mL (3 mL) subcutaneous pen 24 units subcut DINNER 09/30/19 [History Last Taken Unknown] levothyroxine 25 mcg tablet 25 mcg PO DAILY 09/30/19 [History Last Taken Unknown] losartan 100 mg-hydrochlorothiazide 12.5 mg tablet 1 ea PO DAILY 09/30/19 [History Last Taken Unknown] magnesium oxide 420 mg tablet 420 mg PO DAILY 09/30/19 [History Last Taken Unknown] ascorbic acid (vitamin C) 250 mg chewable tablet 250 mg PO BID 10/08/20 [History Last Taken Unknown] atenolol 25 mg tablet 50 mg PO DAILY 04/14/21 [History Last Taken Unknown] cephalexin 500 mg capsule 500 mg PO Q6H 5 days #20 caps 07/20/21 [Rx Last Taken Unknown] esomeprazole magnesium 20 mg capsule,delayed release (Nexium) 20 mg PO DAILY #30 caps 10/03/21 [Rx Last Taken Unknown] docusate sodium 100 mg capsule (Colace) 100 mg PO DAILY #14 caps 09/27/23 [Rx Last Taken Unknown] Allergy/AdvReac Type Severity Reaction Status Date / Time No Known Allergies Allergy Verified 09/26/23 23:54 Social History Smoking Status: Never smoker substance use type: does not use ROS ROS ED Constitutional Constitutional ED: Denies chills, fever(s) or weight loss Eyes Eyes: Denies change in vision or diplopia ENT ENT ED: Denies ear pain, rhinorrhea or sore throat Cardiovascular Cardiovascular: Denies chest pain, orthopnea, palpitations or racing heartbeat Respiratory/Chest Respiratory/Chest: Denies cough, dyspnea or orthopnea Gastrointestinal Gastrointestinal: Reports constipation; Denies abdominal pain, diarrhea, melena, nausea or vomiting Genitourinary Genitourinary ED: Denies dysuria, hematuria or urinary frequency Musculoskeletal Musculoskeletal: Denies arthralgias or myalgias Integumentary Denies abscess or rash Neurologic Neurologic: Denies headache(s) or weakness Psychiatric Psychiatric: Denies anxiety, depression, suicidal ideation or suicidal thoughts Endocrine Endocrinology: Denies polydipsia, polyphagia or polyuria Allergic/Immunologic Allergic/Immunologic ED: Denies mouth swelling, tongue swelling or urticaria EXAM Physical Exam Const Vital Signs: 09/26/23 23:53 Temperature 97.3 F L Temperature Source Temporal Pulse Rate 74 Respiratory Rate 16 Blood Pressure 198/72 H Blood Pressure Mean 114 Pulse Ox 97 Oxygen Delivery Method Room Air Positive well nourished, well developed and obese General Appearance ED: well developed Nutritional Appearance: obese HEENT Reports normocephalic, head/scalp atraumatic and moist mucous membranes Eyes PERRL and EOMs intact bilaterally Neck no lymphadenopathy, supple and no JVD Resp normal respiratory effort and clear to auscultation bilaterally Cardio regular rate, regular rhythm and no murmurs GI normal to inspection, nondistended, normoactive bowel sounds and non-tender Palpation: soft Narrative: Rectal exam was performed. No gross blood. No rectal pain. There is a large amount of stool in the rectal vault that is firm. Back/Spine no CVA tenderness and normal ROM Extremity normal to inspection General Extremety ED: Negative for edema General Extremity: Negative for edema Neuro oriented x3 and CN's II-XII intact bilaterally Sensorium / Orientation: alert Motor Exam: strength 5/5 throughout Psych mental status grossly normal Mood & Affect: Negative for depressed or tearful Skin no rashes or lesions noted and no wounds MDM MDM MDM Narrative Medical decision making narrative: Shortly after the exam the patient had a very large bowel movement and feels better. Manage interpretation of the abdominal x-ray is no acute process. Patient will be started on a daily Colace. Follow-up as needed. Fluid hydration. Discharge Plan Triage Chief Complaint: Constipation ED Provider: King Tillman Dx/Rx/DC Orders Clinical Impression: Abdominal pain, Constipation Instructions: ED Constipation (Adult) Prescriptions: New docusate sodium [Colace] 100 mg capsule 100 mg PO DAILY Qty: 14 0RF No Action Lantus U-100 Insulin 100 UNIT/ML solution 80 unit subcut QHS metformin 1,000 MG tablet 1,000 mg PO BIDCM insulin aspart U-100 [Novolog FlexPen U-100 Insulin] 100 UNITS/ML insulin pen 19 units subcut BREAKFAST Patient Comments: BREAKFAST & DINNER insulin aspart U-100 [Novolog FlexPen U-100 Insulin] 100 UNITS/ML insulin pen 15 units subcut LUNCH Patient Comments: LUNCH cholecalciferol (vitamin D3) [Vitamin D3] 1,000 UNIT tablet 500 unit PO DAILY Fish Oil 1 EACH capsule 1 ea PO BID atorvastatin 40 MG tablet 80 mg PO QHS magnesium oxide 420 MG tablet 420 mg PO DAILY levothyroxine 25 MCG tablet 25 mcg PO DAILY cyanocobalamin (vitamin B-12) 500 MCG tablet 500 mcg PO DAILY ferrous sulfate 325 MG tablet 325 mg PO BIDCM insulin aspart U-100 100 UNITS/ML insulin pen 24 units subcut DINNER losartan-hydrochlorothiazide 1 EACH tablet 1 ea PO DAILY Finasteride 5 MG tablet 5 mg PO DAILY ascorbic acid (vitamin C) 250 MG tablet,chewable 250 mg PO BID atenolol 25 mg Tablet 50 mg PO DAILY cephalexin 500 mg capsule 500 mg PO Q6H 5 Days Qty: 20 0RF esomeprazole magnesium [Nexium] 20 mg capsule,delayed release(DR/EC) 20 mg PO DAILY Qty: 30 0RF [facility]Primary [facility] Provider] - As Needed Disposition Disposition: Home, Self Care
--- OUTSIDE RECORDS SUMMARY | 2023-09-28 18:03 | XMS RPT_ITS | CCD ---
Author Name Unknown Address [address] [place] [address] Organization [facility] Care Team Providers Care Zoo Keeper Name Role Phone David Goldsmith CNP Primary Care Provider Medications Completed/Discontinued Medications Medication Drug Class(es) Dates Sig (Normalized) Sig (Original) aspirin 81 mg delayed release oral tablet (1 source) Platelet Aggregation Inhibitor, Nonsteroidal Anti-inflammatory Drug Start: 09-28-2007 aspirin(ASPIR-LOW 81 MG TAB) Take one(1) tablet daily. o 0 09/28/2007 Active Problems Active Problems Problem Classification Problem Date Documented Date Episodic/Chronic Diabetes mellitus without complication (1 source) Diabetes mellitus; Translations: [Type 2 diabetes mellitus without complications] Onset: 07-04-2008 07-04-2008 Chronic Esophageal disorders (1 source) Gastroesophageal reflux disease; Translations: [Gastro-esophageal reflux disease without esophagitis] Onset: 06-29-2007 06-29-2007 Chronic Essential hypertension (1 source) Benign essential hypertension; Translations: [Essential (primary) hypertension] Onset: 06-29-2007 06-29-2007 Chronic Other nervous system disorders (1 source) Neuropathy; Translations: [Polyneuropathy, unspecified] Onset: 12-16-2014 12-16-2014 Chronic Other nutritional; endocrine; and metabolic disorders (1 source) Body mass index 40+ - severely obese; Translations: [Morbid (severe) obesity due to excess calories] Onset: 06-29-2007 02-28-2018 Chronic Past or Other Problems Problem Classification Problem Date Documented Da te Episodic/Chronic Abdominal hernia (1 source) Diaphragmatic hernia; Translations: [Diaphragmatic hernia without obstruction or gangrene] Onset: 12-02-2010 12-02-2010 Episodic Esophageal disorders (1 source) Esophagitis; Translations: [Esophagitis, unspecified] Onset: 12-02-2010 12-02-2010 Episodic Other gastrointestinal disorders (1 source) Dysphagia, unspecified; Translations: [Dysphagia, unspecified] Onset: 12-02-2010 12-02-2010 Episodic Results Test Name Value Interpretation Reference Range Facil ity Encounters Encounter Date Encounter Type Care Provider Facility Start: 01-11-2022 ambulatory Cl Tomas MA [facility] [place] Procedures Date Procedure Procedure Detail Performing Clinician Start: 08-13-2003 Colonoscopy Cl mclean [place] Plan of Treatment Date Care Activity Detail Author Start: 10-03-2021 ADVANCE DIRECTIVE DISCUSSION ADVANCE DIRECTIVE DISCUSSION [facility] Start: 08-05-2021 COVID-19 VACCINE (2 - Pfizer 3-dose series) COVID-19 VACCINE (2 - Pfizer 3-dose series) [facility] Start: 12-15-2018 Hepatitis B surface antibody level LDL CHOLESTEROL [facility] Start: 11-22-2018 3 comp foot exam completed DIABETIC FOOT EXAM [facility] Start: 05-19-2018 Hepatitis C antibody , confirmatory test DILATED RETINAL EXAM [facility] Start: 03-17-2018 Hemoglobin A1c/Hemoglobin.total in Blood HBA1C [facility] Start: 12-18-2015 FECAL OCCULT BLOOD FECAL OCCULT BLOO D [facility] Start: 12-13-2015 Hepatitis B screening URINE AL BUMIN:CREATININE RATIO [facility] Start: 12-18-2014 COLORECTAL CANCER SCREENING COLORECTAL CANCER SCREENING [facility] Start: 04-03-2010 Urine microalbumin profile DTAP,TDAP ,TD (1 - Tdap) [facility] Start: 08-13-2008 Colonoscopy COLONOSCOPY [facility] Start: 1998 SHINGRIX VACCINE (1 of 2) SHINGRIX V ACCINE (1 of 2) [facility] Start: 1993 COLOGUARD (FIT-DNA) COLOGUARD (FIT-D NA) [facility] Start: [address] [facility] Start: 1993 SIGMOIDOSCOPY SIGMOIDOSCOPY [facility] Start: 1966 ANNUAL PCP TEAM STONE RIGGER DARRYL DISEASE VISIT ANNUAL PCP TEAM CHRONIC DISEASE VISIT [facility] Start: 1966 BP CONTROLLED (<130/80) BP CONTROLLE D (<130/80) [facility] Start: 1966 HEPATITIS C SCREENING HEPATITIS C SC REENING [facility] Start: 1960 Adult depression scr eening assessment DEPRESSION SCREENING [facility] Immunizations Immunization Date Immunization Notes Care Provider Amy quiñones 08-13-2017 influenza, high dose seasonal, preservative-free Cl [facility] 11-23-2016 zoster vaccine, unspecified formulation Cl Tomas [facility] 05-17-2016 pneumococcal conjuga te vaccine, 13 valent Cl [facility] 06-07-2014 pneumococcal polysaccharide vaccine, 23 valent Cl [facility] Work Phone: 07-16-2013 influenza virus vacc ine, unspecified formulation Cl [facility] 07-27-2012 influenza virus vacc ine, unspecified formulation [facility] 04-02-2010 tetanus and diphther ia toxoids, adsorbed, preservative free, for adult use (2 Lf of tetanus toxoid and 2 Lf of diphtheria toxoid) [facility] 07-04-2008 pneumococcal polysaccharide vaccine, 23 valent [facility] 09-25-2005 influenza virus vacc ine, unspecified formulation [facility] Work Phone: 08-03-2004 tetanus and diphther ia toxoids, adsorbed, preservative free, for adult use (2 Lf of tetanus toxoid and 2 Lf of diphtheria toxoid) [facility] Work Phone: Payers Date Payer Category Payer Medicare [employer] MEDICARE [employer] MEDICARE PPO [id number] 2021-Present [id number] [place] [address] PPO [id number] Social History Date Type Detail Facility Tobacco smoking stat us NHIS Never smoked tobacco [facility] Start: 09-22-2021 Alcohol intake Current non-dr edge inker of alcohol (finding) [facility] Start: 1950 Sex Assigned At Not on file C [facility] Medical Equipment Procedure Code Equipment Code Equipment Origin al Text Equipment Identifier Dates Start: 05-20-2014 Progress note 01-11-2022 Note Date & Type Note Facility 01-11-2022 Note HNO ID: [id number] Author: Cl Tomas MA Service: ? Author Type: Flaring Machine Operator Type: Progress Notes Filed: 01/11/2022 12:22 PM Note Text: POPULATION HEALTH NAVIGATION OUTREACH Action/FYI Spoke with patient and [facility]. Pt identified by name and : YES, via phone Outreach Outcome/Action Spoke to patient or caregiver: Patient declined PCP field updated Reason for Outreach Payer: Payor: [employer] MEDICARE / Plan: [employer] MEDICARE PPO / Product Type: PPO / Care Gap Reviewed:: Reminder: Reminder note to check Health Maintenance for items below Health Maintenance items due: DEPRESSION SCREENING Never done ANNUAL PCP TEAM CHRONIC DISEASE VISIT Never done HEPATITIS C SCREENING Never done BP CONTROLLED (<130/80) Never done SHINGRIX VACCINE(1 of 2) due on 1998 DTAP,TDAP,TD(1 - Tdap) due on 04/03/2010 COLORECTAL CANCER SCREENING due on 12/18/2014 URINE ALBUMIN:CREATININE RATIO due on 12/13/2015 HBA1C due on 03/17/2018 DILATED RETINAL EXAM due on 05/19/2018 DIABETIC FOOT EXAM due on 11/22/2018 LDL CHOLESTEROL due on 12/15/2018 COVID-19 VACCINE(2 - Pfizer 3-dose series) due on 08/05/2021 ADVANCE DIRECTIVE DISCUSSION Never done Message Sent to Practice: Navigation Signature: Cl Tomas MA January 11, 2022 12:[address] [facility] Clinical Note 01-11-2022 Note Date & Type Note Facility 01-11-2022 Note Patient Outreach (NE TNAV) JACQUELIN WOODRUFF ([id number]) 1950 M Date Time Provider Department 01/11/22 CL TOMAS During your visit today, we recorded the following information about you: Cl Tomas MA 01/11/2022 12:22 PM Signed POPULATION HEALTH NAVIGATION OUTREACH Action/FYI Spoke with patient and [facility] Updated PCP. Pt identified by name and : YES, via phone Outreach Outcome/Action Spoke to patient or caregiver: Patient declined PCP field updated Reason for Outreach Payer: Payor: [employer] MEDICARE / Plan: [employer] MEDICARE PPO / Product Type: PPO / Care Gap Reviewed:: Reminder: Reminder note to check Health Maintenance for items below Health Maintenance items due: DEPRESSION SCREENING Never done ANNUAL PCP TEAM CHRONIC DISEASE VISIT Never done HEPATITIS C SCREENING Never done BP CONTROLLED (<130/80) Never done SHINGRIX VACCINE(1 of 2) due on 1998 DTAP,TDAP,TD(1 - Tdap) due on 04/03/2010 COLORECTAL CANCER SCREENING due on 12/18/2014 URINE ALBUMIN:CREATININE RATIO due on 12/13/2015 HBA1C due on 03/17/2018 DILATED RETINAL EXAM due on 05/19/2018 DIABETIC FOOT EXAM due on 11/22/2018 LDL CHOLESTEROL due on 12/15/2018 COVID-19 VACCINE(2 - Pfizer 3-dose series) due on 08/05/2021 ADVANCE DIRECTIVE DISCUSSION Never done Message Sent to Practice: Navigation Signature: Cl Tomas MA January 11, 2022 12:21 PM Allergies As of Date: 01/11/2022 (No Known Allergies) Date Reviewed: 09/22/2021 Reviewed by: Nova Bernal - Fully Assessed Reason for Visit: Population Health Navigation Outreach [3910] Cmt: [employer] care gaps Prescriptions as of 01/11/2022 - Lancets (FREESTYLE LANCETS) lancets Dx: Insulin dependent DM2, Patient test x2 daily - insulin needles, DISPOSABLE, (PEN NEEDLE) 31 X 5/16 ndle Use once daily with insulin injection - esomeprazole (NEXIUM) 40 mg capsule Take 1 capsule by mouth once daily. - insulin glargine (LANTUS SOLOSTAR) 100 unit/mL (3 mL) inpn Inject 50 Units subcutaneously daily at bedtime. - saxagliptin (ONGLYZA) 5 mg tab Take 1 tablet by mouth once daily. - glimepiride (AMARYL) 2 mg tablet Take 1 tablet by mouth twice daily with meals. - metFORMIN (GLUCOPHAGE) 1,000 mg tablet Take 1 tablet by mouth twice daily. - losartan 100 mg tablet Take 1 tablet by mouth once daily. - blood sugar diagnostic (FREESTYLE TEST) test strip Check Blood Sugar twice daily - COMPOUNDED PRESCRIPTION BLOOD PRESSURE CUFF FOR HOME USE. DX: LABILE BLOOD PRESSURE - [place]-3 Fatty Acids-Vitamin E (FISH OIL) 1,000 mg cap Take 1 capsule by mouth twice daily. - OTC NUTRITIONAL SUPPLEMENT Take by mouth. glucosamine one a day - aspirin(ASPIR-LOW 81 MG TAB) Take one(1) tablet daily. Problem List As Of Date 01/11/2022 Noted Resolved BENIGN HYPERTENSION [I10] 06/29/2007 IMPAIRED FASTING GLUCOSE [R73.01] 06/29/2007 06/30/2007 Obesity, Class III, BMI 40-49.9 (morbid obesity*06/29/2007 ESOPHAGEAL REFLUX [K21.9] 06/29/2007 DIABETES MELLITUS TYPE II UNCONTR UNCOMPL [IMO0*06/30/2007 07/04/2008 DIABETES MELLITUS TYPE II-UNCOMPL [E11.9] 07/04/2008 Esophagitis, unspecified [K20.90] 12/02/2010 Diaphragmatic hernia without mention of obstruc*12/02/2010 Dysphagia, unspecified [R13.10] 12/02/2010 Tear of medial cartilage or meniscus of knee, c*03/02/2011 04/20/2011 Neuropathy [G62.9] 12/16/2014 Encounter Status:Closed by CL TOMAS on 01/11/[address] [facility] History of Present illness Narrative 01-11-2022 Cl Tomas MA - 01/11/2022 12:21 PM EDT Note Date & Type Note Facility 01-11-2022 History of Presen t illness Narrative POPULATION HEALTH NAVIGATION OUTREACH Action/FYI Spoke with patient and [facility] Updated PCP. Pt identified by name and : YES, via phone Outreach Outcome/Action Spoke to patient or caregiver: Patient declined PCP field updated Reason for Outreach Payer: Payor: [employer] MEDICARE / Plan: [employer] MEDICARE PPO / Product Type: PPO / Care Gap Reviewed:: Reminder: Reminder note to check Health Maintenance for items below Health Maintenance items due: DEPRESSION SCREENING Never done ANNUAL PCP TEAM CHRONIC DISEASE VISIT Never done HEPATITIS C SCREENING Never done BP CONTROLLED (<130/80) Never done SHINGRIX VACCINE(1 of 2) due on 1998 DTAP,TDAP,TD(1 - Tdap) due on 04/03/2010 COLORECTAL CANCER SCREENING due on 12/18/2014 URINE ALBUMIN:CREATININE RATIO due on 12/13/2015 HBA1C due on 03/17/2018 DILATED RETINAL EXAM due on 05/19/2018 DIABETIC FOOT EXAM due on 11/22/2018 LDL CHOLESTEROL due on 12/15/2018 COVID-19 VACCINE(2 - Pfizer 3-dose series) due on 08/05/2021 ADVANCE DIRECTIVE DISCUSSION Never done Message Sent to Practice: Navigation Signature: Cl Tomas MA January 11, 2022 12:21 PM documented in this encounter [facility] Progress note 09-22-2021 Note Date & Type Note Facility 09-22-2021 Note HNO ID: [id number] Author: Kisha Matos PA-C Service: ? Author Type: Physician Bench Worker Apprentice Type: Progress Notes Filed: 09/22/2021 2:59 PM Note Text: 09/22/2021 Patient presents with: Ear Pain: bilateral, ringing x 3-4 days SUBJECTIVE: This is a 71 year old that is here today for Complaint(s) of fullness in ears x 1 week, worsening the last 2-3 days-feels pressure in ears and uncomfortable, but not painful. He did have some intermittent ringng. More of a humming now. Denies fever/chills, recent URI symptoms. No new medications. Not taking motrin. Patient is on losartan and nexium. PAST MEDICAL HISTORY Diagnosis Date - Diabetes mellitus without mention of complication Diabetes mellitus - Diaphragmatic hernia without mention of obstruction or gangrene - Esophagitis, unspecified - Unspecified essential hypertension Essential hypertension ALLERGIES Patient has no known allergies. MEDICATIONS Current Outpatient Medications Medication Sig - Lancets (FREESTYLE LANCETS) lancets Dx: Insulin dependent DM2, Patient test x2 daily - insulin needles, DISPOSABLE, (PEN NEEDLE) 31 X 5/16 ndle Use once daily with insulin injection - esomeprazole (NEXIUM) 40 mg capsule Take 1 capsule by mouth once daily. - insulin glargine (LANTUS SOLOSTAR) 100 unit/mL (3 mL) inpn Inject 50 Units subcutaneously daily at bedtime. - saxagliptin (ONGLYZA) 5 mg tab Take 1 tablet by mouth once daily. - glimepiride (AMARYL) 2 mg tablet Take 1 tablet by mouth twice daily with meals. - metFORMIN (GLUCOPHAGE) 1,000 mg tablet Take 1 tablet by mouth twice daily. - losartan 100 mg tablet Take 1 tablet by mouth once daily. - blood sugar diagnostic (FREESTYLE TEST) test strip Check Blood Sugar twice daily - COMPOUNDED PRESCRIPTION BLOOD PRESSURE CUFF FOR HOME USE. DX: LABILE BLOOD PRESSURE - [place]-3 Fatty Acids-Vitamin E (FISH OIL) 1,000 mg cap Take 1 capsule by mouth twice daily. - OTC NUTRITIONAL SUPPLEMENT Take by mouth. glucosamine one a day - aspirin(ASPIR-LOW 81 MG TAB) Take one(1) tablet daily. No current facility-administered medications for this visit. SOCIAL HISTORY Social History Tobacco Use - Smoking status: Never Smoker - Smokeless tobacco: Never Used Substance Use Topics - Alcohol use: No - Drug use: No REVIEW OF SYSTEMS See HPI OBJECTIVE: BP 130/74 Pulse 78 Temp 36.4 ?C (97.5 ?F) Resp 16 Wt (!) 137 kg (302 lb) SpO2 98% APPEARANCE Well appearing, alert, in no acute distress, well-hydrated, well nourished. EYES PERRLA, conjunctiva and sclera normal. EARS External ears normal, canals clear. TMs normal MARCE NOSE/SINUS Nares normal. Septum midline. Mucosa normal. No drainage or sinus tenderness. ASSESSMENT/PLAN: 1. Tinnitus of both ears - ICD9: 388.30, ICD10: H93.13 Possible medication related vs hearing loss vs other etiology Advise f/u with ENT and PCP. Reviewed red flags and when to seek care sooner. The patient indicates understanding of these issues and agrees with the plan. Kisha Matos PA-C [facility] History of Past illness Narrative 03-02-2011 Note Date & Type Note Facility documented as of this encounter (statuses as of 01/11/2022) [facility] Summary Purpose Family History No Family History Records Found Advance Directives No Advanced Directives Records Found Additional Source Comments Source Comments (unrecognize d section and content) In the event this informatio n is protected by the Federal Confidentiality of Alcohol and Drug Abuse Patient Records regulations: The Federal rules restrict any use of the information to criminally investigate or prosecute any alcohol or drug abuse patient.[facility] Reason for Visit (unrecogniz ed section and content) Care Teams (unrecognized sec tion and content) (unrecognized sect ion and content) No Status Records Found INFORMATION SOURCE (unrecogn ized section and content) FOR RECORDS PERTAINING TO PATIENTS WHO ARE OR HAVE BEEN ENROLLED IN A CHEMICAL DEPENDENCY/SUBSTANCEABUSE PROGRAM, SOME INFORMATION MAY BE OMITTED. This clinical summary was aggregated from multiple sources. Caution should be exercised in using it in the provision of clinical care. This summary normalizes information from multiple sources, and as a consequence, information in this document may materially change the coding, format and clinical context of patient data. In addition, data may be omitted in some cases. CLINICAL DECISIONS SHOULD BE BASED ON THE PRIMARY CLINICAL RECORDS. [facility]. provides no warranty or guarantee of the accuracy or completeness of information in this document.
== END 2023-09-27 01:04 | disposition home or self-care (01) ==
PROVIDERS: Emergency Provider Emergency Medicine; Visit Provider Emergency Medicine
DX: K59.00 Constipation, unspecified (principal); E11.9 Type 2 diabetes mellitus without complications; Z79.4 Long term (current) use of insulin; I10 Essential (primary) hypertension; R10.9 Unspecified abdominal pain; Z79.899 Other long term (current) drug therapy; Z79.84 Long term (current) use of oral hypoglycemic drugs; E05.90 Thyrotoxicosis, unspecified without thyrotoxic crisis or storm
CPT/HCPCS: 74018; 99282

== ENCOUNTER → 2023-12-14 | Outpatient (CLI) | payer OTHER, SELFPAY ==
[2023-12-14 09:45] LABS: Color, Urine Yellow (Yellow); Glucose, Dipstick Normal (Normal); Ketone-Dipstick Negative (Negative); Leukocyte Esterase-Dipstick 25 /ul (Negative); Nitrite-Dipstick Negative (Negative); Occult Blood-Urine 10 /ul (Negative); Protein-Dipstick 15 mg/dl (Negative); Urine Bilirubin Dipstick Negative (Negative); Urine Clarity Clear (Clear); Urine Urobilinogen 1 mg/dl (Normal)
[2023-12-14 10:19] LABS: ALB/GLOB Ratio 0.8 RATIO (0.9-2.4); AST(SGOT) 12 U/L (15-37); Alanine Aminotransfer ALT/SGPT 15 U/L (16-61); Albumin, Serum 3.2 g/dL (3.2-5.0); Alkaline Phosphatase 82 U/L (45-117); Anion Gap 10 (5-15); BUN 32 mg/dL (7-18); BUN/Creat Ratio 18.5 RATIO (10-20); Chloride 102 mmol/L (98-107); Creatinine, Serum 1.73 mg/dL (0.70-1.30); EST Glomerular Filtration Rate 41 mL/min (>60); Est Glom Filt Rate - Afr Amer 50 mL/min (>60); Free T3 2.1 pg/mL (2.18-3.98); Globulin 4.2 g/dL (2.2-4.2); Glucose 217 mg/dL (74-106); Potassium 4.1 mmol/L (3.5-5.1); Protein, Total 7.4 g/dL (6.4-8.2); Sodium Level 139 mmol/L (136-145); T4 Free Direct 1.03 ng/dL (0.76-1.46); Thyroid Stim Hormone (TSH) 8.49 uIU/mL (0.358-3.74)
== END | disposition home or self-care (01) ==
LOC: LAB 08:22
PROVIDERS: Referring Provider Chiropractor; Visit Provider Chiropractor
DX: E03.9 Hypothyroidism, unspecified (principal); E11.9 Type 2 diabetes mellitus without complications
CPT/HCPCS: 36415; 80053; 81002; 84439; 84443; 84481

== ENCOUNTER 2024-02-07 15:46 | Emergency (ER) | payer OTHER, SELFPAY ==
[2024-02-07 15:46] VITALS: BP 181/57; PULSE 62; RESP 19; TEMP 36.3; O2SAT 98; BMI 43.7
--- NOTE | 2024-02-07 15:51 | EDS_ITS ---
HPI History of Present Illness Chief Complaint: Abn Labs [facility] Medical History Diabetes Hypertension Hyperthyroidism Home Medications cholecalciferol (vitamin D3) 25 mcg (1,000 unit) tablet (Vitamin D3) 500 unit PO DAILY 11/06/16 [History Last Taken Unknown] insulin aspart U-100 100 unit/mL (3 mL) subcutaneous pen (Novolog FlexPen U-100 Insulin aspart) 15 units subcut LUNCH 11/06/16 [History Last Taken Unknown] insulin aspart U-100 100 unit/mL (3 mL) subcutaneous pen (Novolog FlexPen U-100 Insulin aspart) 19 units subcut BREAKFAST 11/06/16 [History Last Taken Unknown] insulin glargine 100 unit/mL subcutaneous solution (Lantus U-100 Insulin) 80 unit subcut QHS 11/06/16 [History Last Taken Unknown] metformin 1,000 mg tablet 1,000 mg PO BIDCM 11/06/16 [History Last Taken Unknown] omega-3 fatty acids-fish oil 340 mg-1,000 mg capsule (Fish Oil) 1 ea PO BID 11/06/16 [History Last Taken Unknown] Finasteride 5 mg PO DAILY 09/30/19 [History Last Taken Unknown] atorvastatin 40 mg tablet 80 mg PO QHS 09/30/19 [History Last Taken Unknown] cyanocobalamin (vitamin B-12) 500 mcg tablet 500 mcg PO DAILY 09/30/19 [History Last Taken Unknown] ferrous sulfate 325 mg (65 mg iron) tablet 325 mg PO BIDCM 09/30/19 [History Last Taken Unknown] insulin aspart U-100 100 unit/mL (3 mL) subcutaneous pen 24 units subcut DINNER 09/30/19 [History Last Taken Unknown] levothyroxine 25 mcg tablet 25 mcg PO DAILY 09/30/19 [History Last Taken Unknown] losartan 100 mg-hydrochlorothiazide 12.5 mg tablet 1 ea PO DAILY 09/30/19 [History Last Taken Unknown] magnesium oxide 420 mg tablet 420 mg PO DAILY 09/30/19 [History Last Taken Unknown] ascorbic acid (vitamin C) 250 mg chewable tablet 250 mg PO BID 10/08/20 [History Last Taken Unknown] atenolol 25 mg tablet 50 mg PO DAILY 04/14/21 [History Last Taken Unknown] cephalexin 500 mg capsule 500 mg PO Q6H 5 days #20 caps 07/20/21 [Rx Last Taken Unknown] esomeprazole magnesium 20 mg capsule,delayed release (Nexium) 20 mg PO DAILY #30 caps 10/03/21 [Rx Last Taken Unknown] docusate sodium 100 mg capsule (Colace) 100 mg PO DAILY #14 caps 09/27/23 [Rx Last Taken Unknown] Allergy/AdvReac Type Severity Reaction Status Date / Time No Known Allergies Allergy Verified 09/26/23 23:54 Social History Smoking Status: Never smoker substance use type: does not use EXAM Physical Exam Const Vital Signs: 02/07/24 15:46 02/07/24 16:02 02/07/24 17:46 Temperature 97.4 F L Temperature Source Temporal Pulse Rate 62 89 Respiratory Rate 19 H 16 Respiratory Effort Normal Respiratory Pattern Normal Blood Pressure 181/57 H Blood Pressure Mean 98 Pulse Ox 98 98 Oxygen Delivery Method Room Air Room Air 02/07/24 19:00 02/07/24 21:00 Temperature 98.4 F 96.5 F L Temperature Source Temporal Temporal Pulse Rate 76 89 Respiratory Rate 18 16 Respiratory Effort Respiratory Pattern Blood Pressure 150/90 H Blood Pressure Mean 110 Pulse Ox 98 99 Oxygen Delivery Method Room Air Room Air [facility] MDM MDM Narrative Medical decision making narrative: HISTORY OF PRESENT ILLNESS: 73-year-old male presents with concern for abnormal labs. Notes [facility] secondary to renal dysfunction. He denies any vomiting or diarrhea. Denies any urinary retention. Does state he has been eating less secondary to diet. But notes drinking usual amount of fluid. REVIEW OF SYSTEMS: Pertinent positives: None Pertinent negatives: Vomiting, diarrhea, urinary retention PHYSICAL EXAM: Nursing triage notes reviewed, Vital signs reviewed Constitutional: please see mdm HENT: MMM Eyes: Pupils equal round and reactive to light, Extraocular muscles intact Neck: No stridor, no JVD, full neck ROM Lungs: Clear to auscultation, No wheezing or rales. No increased work of breathing, no conversational dyspnea, no accessory muscle use, no nasal flaring. No respiratory distress noted Heart: Regular rate and rhythm, No murmurs, No rubs and No gallops, 2+ distal pulses (radial, femoral, posterior tibial) in all extremities Abdomen: Soft, there is no tenderness, rigidity, rebound or guarding, no obvious peritoneal signs, no palpable pulsatile abdominal masses, no auscultated abdominal bruit : No CVAT Extremities: No edema Neuro: No focal neurological deficits, cranial nerves II through XII intact, 5/5 strength in all extremities. Intact sensation to light touch in all extremities, 2+ reflexes bilateral patella tendons. Normal gait. No ataxia. Skin: No rash or lesions noted MEDICAL DECISION MAKING: Chief Complaint: Abnormal labs, increased BUN/creatinine External records reviewed: Prior labs reviewed baseline creatinine approximately 1.6, baseline BUN in the upper 20s, baseline GFR in the mid 40s Factors affecting care: Type 2 diabetes, hypothyroidism, Social determinants of health: none History obtained from others: none Consults: Internal medicine MDM Narrative: Patient was initially hypertensive otherwise afebrile and nontoxic-appearing. Exam without CVA tenderness. I considered the following differential diagnosis: AMPARO, renal failure I obtained labs to assess patient's renal function. ALL IMAGES (IF OBTAINED) HAVE BEEN PERSONALLY REVIEWED AND INTERPRETED BY MYSELF. CBC with no leukocytosis, mild anemia but no thrombocytopenia BMP without significant electrolyte abnormalities, no sign of metabolic acidosis or endorgan hypoperfusion, noted elevation in BUN and creatinine consistent with acute kidney injury however downtrending from reported creatinine of 3.3 by the patient. I initially treated the patient 1 L normal saline to improve renal function. I gave a second liter and repeated the patient's BMP to assess renal function. Repeat BMP after 2 L of fluid shows improvement in creatinine. Patient continued to deny symptoms of nausea, vomiting, diarrhea. He had no pain. Able to tolerate p.o. Shared decision making was undertaken. Offered admission however patient refused. He is alert and orient x 3 no capacity to make his own medical symptoms or chose to be discharged home. I encouraged him to drink copious p.o. fluids and to monitor his urine status. To return if you develop any diarrhea, vomiting, decreased urination. Encouraged him to follow with his primary care physician as outpatient to repeat blood test in 1 to 2 weeks. The patient and/or family, caregivers express understanding. The patient and/or family, caregivers agrees with the plan. Shared decision making: I will have a discussion with the patient and or visitors regarding risk/benefits of further testing or admission. They will be made aware of of the risk/benefits inherent in this decision they will be given the opportunity to voice understanding. Total critical care time today provided was at least 0 minutes. This excludes separately billable procedures. Critical care time (if documented) is secondary to the patient having high probability of clinically significant/life threatening deterioration in the patient's condition which required my urgent intervention. Impression: 1. Acute kidney injury 2. History of chronic kidney disease 3. Anemia Dispo: Discharge home This note was generated with [employer] dictation software. It may contain incorrect words, spelling, and punctuation that were not noted in review of the chart prior to signing. Lab Data Labs: Laboratory Results - last 24 hr 02/07/24 02/07/24 02/07/24 16:00 16:55 19:52 WBC 10.4 RBC 4.27 L Hgb 11.5 L Hct 36.7 L MCV 85.9 MCH 26.9 L MCHC 31.3 L RDW Std Deviation 42.7 RDW Coeff of Giulia 13.6 Plt Count 271 MPV 8.9 Immature Gran % (Auto) 0.500 Neut % (Auto) 61.9 Lymph % (Auto) 28.2 [place] % (Auto) 6.6 Eos % (Auto) 1.9 Baso % (Auto) 0.9 Absolute Neuts (auto) 6.4 Absolute Lymphs (auto) 2.93 Nucleated RBC % 0 Sodium 139 142 Potassium 4.3 4.3 Chloride 107 110 H Carbon Dioxide 27.0 27.0 Anion Gap 5 5 BUN 35 H 33 H Creatinine 2.30 H 2.09 H Estim Creat Clear Calc 35.43 38.99 Est GFR (MDRD) Af Amer 36 L 40 L Est GFR (MDRD) Non-Af 30 L 33 L BUN/Creatinine Ratio 15.2 15.8 Glucose 134 H 113 H Calcium 9.0 8.0 L Urine Color Yellow Urine Clarity Clear Urine pH 6.5 Ur Specific [place] 1.010 Urine Protein Negative Urine Glucose (UA) Normal Urine Ketones Negative Urine Occult Blood Negative Urine Nitrite Negative Urine Bilirubin Negative Urine Urobilinogen Normal Ur Leukocyte Esterase Negative Urine RBC 0 SEEN Urine WBC 0 SEEN Ur Squamous Epith Cells 0-5 SEEN Urine Bacteria 0 SEEN Urine Mucus 0 SEEN Discharge Plan Triage Chief Complaint: Abn Labs ED Provider: Marcello Walsh Dx/Rx/DC Orders Clinical Impression: AMPARO (acute kidney injury) Prescriptions: No Action Lantus U-100 Insulin 100 UNIT/ML solution 80 unit subcut QHS metformin 1,000 MG tablet 1,000 mg PO BIDCM insulin aspart U-100 [Novolog FlexPen U-100 Insulin] 100 UNITS/ML insulin pen 19 units subcut BREAKFAST Patient Comments: BREAKFAST & DINNER insulin aspart U-100 [Novolog FlexPen U-100 Insulin] 100 UNITS/ML insulin pen 15 units subcut LUNCH Patient Comments: LUNCH cholecalciferol (vitamin D3) [Vitamin D3] 1,000 UNIT tablet 500 unit PO DAILY Fish Oil 1 EACH capsule 1 ea PO BID atorvastatin 40 MG tablet 80 mg PO QHS magnesium oxide 420 MG tablet 420 mg PO DAILY levothyroxine 25 MCG tablet 25 mcg PO DAILY cyanocobalamin (vitamin B-12) 500 MCG tablet 500 mcg PO DAILY ferrous sulfate 325 MG tablet 325 mg PO BIDCM insulin aspart U-100 100 UNITS/ML insulin pen 24 units subcut DINNER losartan-hydrochlorothiazide 1 EACH tablet 1 ea PO DAILY Finasteride 5 MG tablet 5 mg PO DAILY ascorbic acid (vitamin C) 250 MG tablet,chewable 250 mg PO BID atenolol 25 mg Tablet 50 mg PO DAILY cephalexin 500 mg capsule 500 mg PO Q6H 5 Days Qty: 20 0RF esomeprazole magnesium [Nexium] 20 mg capsule,delayed release(DR/EC) 20 mg PO DAILY Qty: 30 0RF docusate sodium [Colace] 100 mg capsule 100 mg PO DAILY Qty: 14 0RF [facility] [facility] [Primary Care Provider] - Activity Restrictions/Additional Instructions: Thank you for trusting us with your care today! Please discontinue taking metformin until results of repeat kidney testing are known. Please return to the emergency department if your symptoms change or worsen. Specifically develop decreased urination, vomiting, diarrhea or other volume loss. Please eat a healthy diet this consists of fresh fruits vegetables lean meats and nonsugar containing fluids. Please get daily exercise I recommend 30 minutes of walking daily. Please drink copious p.o. fluid. I recommend Pedialyte, body armor or Gatorade. Please follow with your primary care physician for further outpatient evaluation and management and repeat lab evaluation. Disposition Disposition: Home, Self Care
[2024-02-07 16:17] LABS: Absolute Lymphocyte Count 2.93 X10^3/uL (0.83-4.51); Absolute Neutrophil Count 6.4 X10^3/uL (2.0-7.7); Basophil# 0.09 X10^3/uL; Basophil% 0.9 % (0-1); Eosinophils% 1.9 % (0-5); Hematocrit 36.7 % (40-54); Hemoglobin 11.5 g/dL (13.0-16.5); Lymphocyte # 2.93 X10^3/ul (0.83-4.51); Lymphocyte % 28.2 % (19-41); Mean Corp Hgb Conc 31.3 g/dL (32-36); Mean Corpuscular Hgb 26.9 pg (27.0-32.0); Mean Corpuscular Volume 85.9 fL (80-94); Mean Platelet Vol. 8.9 fl (6.2-12.0); Monocyte# 0.69 X10^3/uL; Monocyte% 6.6 % (0-10); NRBC Flagged by Analyzer 0 % (0-5); Neutrophil # 6.42 X10^3/uL (2.7-7.7); Neutrophil % 61.9 % (47-70); Platelet Count 271 K/mm3 (150-450); RBC Distribution Width CV 13.6 % (11.6-14.6); RBC Distribution Width SD 42.7 fl (35.1-43.9); Red Blood Count 4.27 M/mm3 (4.6-6.2); White Blood Count 10.4 K/mm3 (4.4-11.0)
[2024-02-07 16:22] LABS: POSITIVE COUNT NO; POSITIVE DIFFERENTIAL NO; POSITIVE MORPHOLOGY NO
[2024-02-07 16:32] LABS: Anion Gap 5 (5-15); BUN 35 mg/dL (7-18); BUN/Creat Ratio 15.2 RATIO (10-20); Chloride 107 mmol/L (98-107); EST Glomerular Filtration Rate 30 mL/min (>60); Est Glom Filt Rate - Afr Amer 36 mL/min (>60); Estimated Creatinine Clearance 35.43 ml/min; Glucose 134 mg/dL (74-106); Potassium 4.3 mmol/L (3.5-5.1); Sodium Level 139 mmol/L (136-145)
--- NOTE | 2024-02-07 16:43 | NURSING ---
[facility]ED [facility], LEFT MESSAGE WITH [facility]OL.
[2024-02-07 17:08] LABS: Bacteria 0 SEEN /hpf (None Seen); Mucous, Urine 0 SEEN /hpf (<or=2+); Red Blood Cells-Urine 0 SEEN /hpf (0-5); White Blood Cells 0 SEEN /hpf (0-5)
[2024-02-07] MEDS: 0.9% Normal Saline (1000mL) 1,000 ML 999 ML IV ×2 (17:12→17:43)
[2024-02-07 17:46] VITALS: PULSE 89; RESP 16; O2SAT 98
[2024-02-07 17:46] LABS: Color, Urine Yellow (Yellow); Glucose, Dipstick Normal (Normal); Ketone-Dipstick Negative (Negative); Leukocyte Esterase-Dipstick Negative /ul (Negative); Nitrite-Dipstick Negative (Negative); Occult Blood-Urine Negative /ul (Negative); Protein-Dipstick Negative (Negative); Urine Bilirubin Dipstick Negative (Negative); Urine Clarity Clear (Clear); Urine Urobilinogen Normal (Normal); Urine pH 6.5 (5.0 - 8.0)
[2024-02-07 18:11] LABS: Squamous Epithelial Cells - UA 0-5 SEEN /hpf (0-5)
--- NOTE | 2024-02-07 18:25 | NURSING ---
[facility]ART TO [facility]. TALKED TO RODOLFO AND GAVE ALL INFO
[2024-02-07 19:00] VITALS: PULSE 76; RESP 18; TEMP 36.9; O2SAT 98
[2024-02-07 20:20] LABS: Anion Gap 5 (5-15); BUN 33 mg/dL (7-18); BUN/Creat Ratio 15.8 RATIO (10-20); Chloride 110 mmol/L (98-107); Creatinine, Serum 2.09 mg/dL (0.70-1.30); EST Glomerular Filtration Rate 33 mL/min (>60); Est Glom Filt Rate - Afr Amer 40 mL/min (>60); Estimated Creatinine Clearance 38.99 ml/min; Glucose 113 mg/dL (74-106); Potassium 4.3 mmol/L (3.5-5.1); Sodium Level 142 mmol/L (136-145)
[2024-02-07 21:00] VITALS: BP 150/90; PULSE 89; RESP 16; TEMP 35.8; O2SAT 99
[2024-02-07 21:43] VITALS: BP 142/78; PULSE 81; RESP 16; TEMP 36.3; O2SAT 99
== END 2024-02-07 21:44 | disposition home or self-care (01) ==
PROVIDERS: Emergency Provider Emergency Medicine; Visit Provider Emergency Medicine
DX: N17.9 Acute kidney failure, unspecified (principal); E11.22 Type 2 diabetes mellitus with diabetic chronic kidney disease; Z79.4 Long term (current) use of insulin; I12.9 Hypertensive chronic kidney disease with stage 1 through stage 4 chronic kidney disease, or unspecified chronic kidney disease; D64.9 Anemia, unspecified; N18.9 Chronic kidney disease, unspecified; Z79.84 Long term (current) use of oral hypoglycemic drugs; E03.9 Hypothyroidism, unspecified
CPT/HCPCS: 80048; 81001; 85025; 96360; 96361; 99282; J7030; A4216